=== PATIENT | female | born 1935 | race Caucasian/White ===

== ENCOUNTER 2022-09-13 17:35 | Inpatient (IN) ==
[2022-09-13] MEDS ORDERED: SODIUM CHLORIDE 0.9% 1000ML 1,000 ML IV ONE (18:35)
--- NOTE | 2022-09-13 18:38 | Emergency Department Note ---
Impression & Plan Pneumonia, Non-ST elevation [place] (NSTEMI), Hypokalemia, Leukocytosis ED Provider Note HISTORY OF PRESENT ILLNESS: Patient is an 87-year-old female presenting with shortness of breath and lethargy. Patient is from [facility] where she resides. She was diagnosed with RSV last week and started on 5 L nasal cannula. She reportedly has not been needing the oxygen as frequently over the last week. However, today they found the patient saturating in the upper 80s and started her back on oxygen. She is much more lethargic and sleepy than her normal. She has baseline dementi a. Patient son and MPOA is at bedside. He reports that the patient is comfort measures only, but they would be okay with antibiotics or IV fluids. ROS: Patient currently has altered mental status and is unable to provide accurate information regarding ROS, histories, meds, or allergies. Any information regarding ROS, Past medical or surgical history, social or family history documented below has been obtained from the EMR. Any additional history regarding this cannot be obtained presently due to her medical condition. PHYSICAL EXAM: Constitutional: Patient appears in no acute distress. HENT: Head: Normocephalic and atraumatic. Eyes: EOMI, PERRL Mouth/Throat: Mucous membranes moist. Neck: Trachea midline. Neck supple. Cardiovascular: Tachycardic with regular rhythm. No murmurs, rubs or gallops. Intact distal pulses. Pulmonary/Chest: On non-rebreather. Coarse breath sounds bilaterally. Abdominal: BS +. Abdomen soft, no tenderness, rebound or guarding. Back: No midline spinal tenderness, no paraspinal tenderness, no CVA tenderness. Musculoskeletal: No edema, tenderness or deformity noted. Skin: Warm and dry. Psychiatric: Unable to assess. Neurological: Lethargic. Responds to painful stimuli. Intact gag reflex. MDM: - Vitals signs showed tachycardia. - EKG negative for acute ischemic changes. - Laboratory workup showed leukocytosis (WBC 16.14) with neutrophilic shift; hypernatremia (Na 146); hypokalemia (K 3.2); NSTEMI (trop 24.9 - likely type 2 NSTEMI); - ABG shows alkalosis. - Procal pending - CXR shows cardiomegaly with pulmonary vascular congestion. Also noted to have airspace opacities in the left mid lung and left basilar region. - Blood cultures obtained. - Patient given 1L NS and cefepime in ER. - Hospitalist Dr. Arora consulted for admission. - Patient admitted to [facility] for further evaluation and management. ASSESSMENT AND PLAN: Diagnosis: pneumonia; leukocytosis; hypokalemia; NSTEMI Plan: admit Past Med/Surg History Medical History (Updated 09/13/22 @ 20:45 by Soniya Patel MD) Breast CA treated with lumpectomy and radiation 2010 Dementia GERD (gastroesophageal reflux disease) Hypertension Hypothyroid Right foot injury s/p surgery, now pain Surgical History (Updated 07/11/19 @ 14:43 by Ludy Whyte MD) History of lumpectomy of left breast Social History (Updated 07/11/19 @ 20:17 by Ludy Whyte MD) Smoking Status: Unknown if ever smoked Communication Ability: Impaired Current Living Situation: Family Current Living Situation Comment: lives with son and caregiver current occupational status: 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 other: her family was refugees from [facility] Allergies Allergies Allergy/AdvReac Type Severity Reaction Status Date / Time No Known Allergies Allergy Verified 07/18/19 15:48 Home Meds Home Medications Medication Instructions Recorded Confirmed alprazolam [Xanax] PO 07/11/19 07/18/19 bupropion HCl [Wellbutrin] PO 07/11/19 07/18/19 levothyroxine [Synthroid] PO 07/11/19 07/18/19 losartan PO 07/11/19 07/18/19 omeprazole PO 07/11/19 07/18/19 Results & Data (ED) Vital Signs Vital Signs - 24 hr 09/13/22 17:42 09/13/22 17:42 09/13/22 17:42 Temperature 37.5 C Temperature Source Oral Pulse Rate 101 H Pulse Rate [Apical] Pulse Rhythm Regular Pulse Rhythm [Apical] Pulse Strength Normal Pulse Strength [Apical] Respiratory Rate 20 Respiratory Effort / Characteristics Non-Labored Non-Labored Respiratory Depth Normal Normal Respiratory Pattern Regular Regular Blood Pressure 124/64 Blood Pressure Mean 84 Pulse Oximetry 93 Oxygen Delivery Method Non-rebreather Non-rebreather Non-rebreather Oxygen Flow Rate 15 Sepsis Recent Fever Within 48 Hours Yes Sepsis New/Unexplained Change in Mental Status Yes Sepsis Action Taken by Nursing Physician Notified 09/13/22 17:42 09/13/22 18:44 Temperature Temperature Source Pulse Rate 100 H Pulse Rate [Apical] 102 H Pulse Rhythm Regular Pulse Rhythm [Apical] Regular Pulse Strength Pulse Strength [Apical] Normal Respiratory Rate 20 20 Respiratory Effort / Characteristics Non-Labored Respiratory Depth Normal Respiratory Pattern Regular Blood Pressure Blood Pressure Mean Pulse Oximetry 94 94 Oxygen Delivery Method Non-rebreather Non-rebreather Oxygen Flow Rate 15 Sepsis Recent Fever Within 48 Hours Sepsis New/Unexplained Change in Mental Status Sepsis Action Taken by Nursing Laboratory Data Result diagrams: 09/13/22 18:57 09/13/22 18:57 Lab Results 09/13/22 09/13/22 09/13/22 Range/Units 18:57 18:57 18:58 WBC 16.14 H (4.8-10.8) K/ul RBC 4.40 (3.93-5.22) M/uL Hgb 13.1 (12.0-16.0) g/dl Hct 38.7 (34.1-44.9) % MCV 88.0 (80.0-100.0) fL MCH 29.8 (25.0-34.0) pg MCHC 33.9 (32.0-36.0) g/dL RDW Std Deviation 53.3 H (36.4-46.3) fL RDW Coeff of Tanesha 16.5 H (11.5-14.5) % Plt Count 265 (130-400) K/uL MPV 11.6 (9.4-12.3) fL Immature Gran % (Auto) 8.1 % Neut % (Auto) 81.7 % Lymph % (Auto) 2.9 % Bacon % (Auto) 6.5 % Eos % (Auto) 0.1 % Baso % (Auto) 0.7 % Neut # (Auto) 13.21 H (1.4-6.5) K/uL Lymph # (Auto) 0.46 L (1.2-3.4) K/uL Bacon # (Auto) 1.05 H (0.24-0.82) K/uL Eos # (Auto) 0.01 (0-0.50) K/uL Baso # (Auto) 0.11 (0-0.2) K/uL Immature Gran # (Auto) 1.30 H (0.00-0.02) K/uL Absolute Nucleated RBC 0.03 H (0-0) K/uL Nucleated RBC % (auto) 0.2 % Dohle Bodies 1+ Acanthocytes (Spur) 1+ ABG pH 7.48 H (7.35-7.45) ABG pCO2 32 L (35-46) mmHg ABG pO2 69 L (80-95) mmHg ABG HCO3 24 (19-24) mmol/L ABG O2 Saturation 95.3 H (90-95) % ABG Base Excess 0.9 (-9-1.8) mEq/L Yair Test POS (Pos) Oxygen Given 15 L Sodium 146 H (136-145) mmol/L Potassium 3.2 L (3.5-5.1) mmol/L Chloride 113 H (98-107) mmol/L Carbon Dioxide 24 (21-32) mmol/L Anion Gap 9 (3-11) BUN 37 H (6-23) mg/dl Creatinine 1.00 (0.6-1.2) mg/dl Est Cr Clr Drug Dosing 44.0 ml/min Est GFR ( Amer) 59.1 ml/min Est GFR (Non-Af Amer) 51.0 ml/min BUN/Creatinine Ratio 37.0 H (10-20) Glucose 190 H (70-99(Fasting)) mg/dl Calcium 10.0 (8.5-10.1) mg/dl Total Bilirubin 0.8 (0.2-1.0) mg/dl AST 15 (13-39) U/L ALT 21 (7-52) U/L Alkaline Phosphatase 97 (34-104) U/L Troponin I High Sens 24.9 H (0-14) pg/ml Total Protein 6.6 (6.0-8.3) gm/dl Albumin 3.0 L (3.4-5.0) gm/dl Globulin 3.6 (2.5-4.0) gm/dl Albumin/Globulin Ratio 0.8 L (0.9-2) Administered Medications Discontinued Medications Sodium Chloride (Nss 1000ml) 1,000 mls @ 999 mls/hr IV .Q1H1M ONE Stop: 09/13/22 19:35 Last Infusion: 09/13/22 20:00 Dose: 0 mls/hr Documented By: Admin: 09/13/22 19:03 Dose: 999 mls/hr Documented By: RSL Cefepime HCl (Maxipime) 2,000 mg in 20 mls @ 5 mls/min IV NOW STA; Protocol Stop: 09/13/22 20:06 Last Admin: 09/13/22 20:12 Dose: 5 mls/min Documented By: RSL Imaging Data Radiologist's Impression: Chest X-Ray 09/13/22 18:35 XR chest 1V portable HISTORY: 87 years-old Female Dyspnea acute shortness of breath COMPARISON: None TECHNIQUE: AP view of the chest FINDINGS: Cardiac silhouette is enlarged. Pulmonary vascular congestion. Perihilar, left basilar and left midlung airspace opacities. No pneumothorax identified. Probable small left pleural effusion. Degenerative changes of the shoulders and spine with surgical clips of the left axilla. IMPRESSION: 1. Cardiomegaly with pulmonary vascular congestion. 2. Left midlung and left basilar predominant airspace opacities with small left pleural effusion. Correlate clinically to exclude pneumonia. ACT 112: Negative or not required by law. The above report was generated using voice recognition software. It may contain grammatical, syntax or spelling errors. Electronically signed by: Elton Bishop M.D. 09/13/2022 7:38 PM Discharge Plan Visit Data Chief Complaint: Shortness of Breath/Dyspnea Stated Complaint: SOB ED Provider: Soniya Patel Discharge Problem: Pneumonia, Non-ST elevation [place] (NSTEMI), Hypokalemia, Leukocytosis Forms Stand Alone Forms: My [facility] Prescriptions Prescriptions: No Action omeprazole PO alprazolam PO losartan PO levothyroxine PO bupropion HCl PO Referrals Referrals: Yo Shepard Mason [Primary Care Provider] -
[2022-09-13 19:10] LABS: Base Excess ABG 0.9 mEq/L (-9-1.8); HCO3 ABG 24 mmol/L (19-24); Oxygen Saturation ABG 95.3 % (90-95); PCO2 ABG 32 mmHg (35-46); PO2 ABG 69 mmHg (80-95); pH ABG 7.48 (7.35-7.45)
[2022-09-13 19:11] LABS: Hematocrit (blood only) 38.7 % (34.1-44.9); Hemoglobin 13.1 g/dl (12.0-16.0); Mean Corpuscular Hemoglobin 29.8 pg (25.0-34.0); Mean Corpuscular Hgb Conc 33.9 g/dL (32.0-36.0); Mean Platelet Volume 11.6 fL (9.4-12.3); Nucleated RBC # (auto) 0.03 K/uL (0-0); Nucleated RBC % (auto) 0.2 %; Platelet Count 265 K/uL (130-400); RDW Coefficient of Variation 16.5 % (11.5-14.5); RDW Standard Deviation 53.3 fL (36.4-46.3); White Blood Count 16.14 K/ul (4.8-10.8)
[2022-09-13 19:20] LABS: Allen Test POS (Pos)
[2022-09-13 19:34] LABS: Acanthocytes 1+; Basophils # (auto) 0.11 K/uL (0-0.2); Basophils % (auto) 0.7 %; Dohle Bodies 1+; Eosinophils # (auto) 0.01 K/uL (0-0.50); Eosinophils % (auto) 0.1 %; Immature Granulocytes % (auto) 8.1 %; Lymphocytes # (auto) 0.46 K/uL (1.2-3.4); Lymphocytes % (auto) 2.9 %; Monocytes # (auto) 1.05 K/uL (0.24-0.82); Monocytes % (auto) 6.5 %; Neutrophils # (auto) 13.21 K/uL (1.4-6.5); Neutrophils % (auto) 81.7 %
[2022-09-13 19:37] LABS: Troponin I High Sensitivity 24.9 pg/ml (0-14)
--- NOTE | 2022-09-13 19:39 | XRay Report ---
XR chest 1V portable HISTORY: 87 years-old Female Dyspnea acute shortness of breath COMPARISON: None TECHNIQUE: AP view of the chest FINDINGS: Cardiac silhouette is enlarged. Pulmonary vascular congestion. Perihilar, left basilar and left midlu ng airspace opacities. No pneumothorax identified. Probable small left pleural effusion. Degenerative changes of the shoulders and spine with surgical clips of the left axilla. IMPRESSION: 1. Cardiomegaly with pulmonary vascular congestion. 2. Left midlung and left basilar predominant airspace opacities with small left pleural effusion. Cor relate clinically to exclude pneumonia. ACT 112: Negative or not required by law. The above report was generated using voice recognition software. It may contain grammatical, syntax o r spelling errors. Electronically signed by: Elton Bishop M.D. 09/13/2022 7:38 PM
[2022-09-13 19:44] LABS: Albumin Globulin Ratio 0.8 (0.9-2); Bilirubin,Total 0.8 mg/dl (0.2-1.0); Est GFR (African American) 59.1 ml/min; Globulin 3.6 gm/dl (2.5-4.0); Potassium 3.2 mmol/L (3.5-5.1); Total Protein 6.6 gm/dl (6.0-8.3)
[2022-09-13] MEDS ORDERED: CEFEPIME 2,000 MG/20 ML VIAL IV STA (20:03)
[2022-09-13 22:07] LABS: Appearance Urine Cloudy (Clear); Bacteria Urine Automated Negative (Negative); Bilirubin Urine Negative (Negative); Blood Urine Negative (Negative); Color Urine Dark Yellow; Epithelial Cell Urine Auto 20-30 /lpf (0-5); Glucose Urine UA Negative (Negative); Ketones Urine Trace (Negative); Leukocyte Esterase Urine Trace (Negative); Nitrite Urine Negative (Negative); Protein Urine 2+ (Negative); Specific Gravity Urine 1.027 (1.000-1.030); Urobilinogen Urine Negative (Negative); pH Urine 5.5 (4.5-7.5)
[2022-09-13 22:34] LABS: RBC Urine Automated 0-4 /hpf (0-4)
[2022-09-13 23:25] LABS: Influenza A virus by PCR Negative (Neg); Influenza B virus by PCR Negative (Neg); RSV by PCR Negative (Neg); SARS CoV2 RNA(COVID-19) Ceph NEGATIVE (Negative)
[2022-09-14] MEDS ORDERED: ACETAMINOPHEN 325 MG TAB PO PRN (00:59)
[2022-09-14] MEDS ORDERED: NITROGLYCERIN SL 0.4 MG/TAB TAB SL PRN (00:59)
[2022-09-14] MEDS ORDERED: ALBUTEROL 0.083% NEBU SOLN 3 ML VIAL NEB PRN (00:59)
[2022-09-14] MEDS ORDERED: ONDANSETRON INJ 2 MG/ML 2 ML VIAL IV PRN (00:59)
[2022-09-14] MEDS ORDERED: DOXYCYCLINE HYCLATE 100 MG in DEXTROSE 5% 100 ML IV STA (01:31)
[2022-09-14] MEDS: D5W AND 1/2NSS 1,000 ML IV SCH ×3 (02:16→22:48)
[2022-09-14] MEDS: POTASSIUM CHLORIDE / WTR 10 MEQ/100 ML PLCT IV SCH ×4 (02:16→05:20)
[2022-09-14] MEDS ORDERED: Nursing to Pharmacy Communication SCH (03:15)
[2022-09-14] MEDS: PIPERACILLIN/TAZOBACTAM 3.375 GM in DEXTROSE 5% 100 ML IV SCH ×3 (04:22→19:27)
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
[2022-09-14 05:13] LABS: Hematocrit (blood only) 36.4 % (34.1-44.9); Hemoglobin 12.3 g/dl (12.0-16.0); Mean Corpuscular Hemoglobin 29.9 pg (25.0-34.0); Mean Corpuscular Hgb Conc 33.8 g/dL (32.0-36.0); Mean Corpuscular Volume 88.6 fL (80.0-100.0); Mean Platelet Volume 11.7 fL (9.4-12.3); Platelet Count 228 K/uL (130-400); RDW Coefficient of Variation 16.5 % (11.5-14.5); RDW Standard Deviation 53.6 fL (36.4-46.3); Red Blood Count 4.11 M/uL (3.93-5.22); White Blood Count 14.02 K/ul (4.8-10.8)
[2022-09-14 05:40] LABS: Echinocytes 1+
[2022-09-14] MEDS: HEPARIN SOD 5,000 UNIT/0.5 ML VIAL SQ SCH ×3 (05:56→20:41)
[2022-09-14 06:00] LABS: BUN Creatinine Ratio 35.3 (10-20); Calcium 9.4 mg/dl (8.5-10.1); Creatinine Clr Calc Pharmacy 51.8 ml/min; Est GFR (African American) 71.9 ml/min; Magnesium 1.7 mg/dl (1.7-2.4); Phosphorus 2.1 mg/dl (2.5-4.9); Troponin I High Sensitivity 19.1 pg/ml (0-14)
[2022-09-14 06:05] LABS: Lymphocytes % (manual) 10 %; Monocytes # (manual) 0.84 K/uL (0.24-0.82); Monocytes % (manual) 6 %; Neutrophils # (manual) 11.78 K/uL (1.4-6.5); Neutrophils % (manual) 84 %
[2022-09-14] MEDS: LEVOTHYROXINE SODIUM 100 MCG TABLET PO SCH (06:49)
[2022-09-14] MEDS ORDERED: OPTIRAY 320 500ml IV ONE (08:00)
[2022-09-14] MEDS: OLANZAPINE 2.5 MG TAB PO SCH ×2 (09:14→20:40)
[2022-09-14] MEDS: FERROUS SULFATE 325 MG TAB PO SCH (09:14)
[2022-09-14] MEDS: PANTOprazole 40 MG TAB PO SCH (09:14)
[2022-09-14] MEDS: LOSARTAN POTASSIUM 50 MG TAB PO SCH (09:14)
[2022-09-14] MEDS: DULoxetine HCL 60 MG CAP PO SCH (09:14)
--- NOTE | 2022-09-14 10:02 | CT Scan Report ---
CT ANGIOGRAM OF THE CHEST CLINICAL HISTORY: Cough and dyspnea. COMPARISON STUDY: Chest x-ray dated 09/13/2020 2P TECHNIQUE: Following the IV administration of 120 cc of Optiray 320, CT angiogram of the chest was pe rformed from the upper abdomen to the thoracic inlet utilizing the pulmonary embolus protocol. Images are reviewed in the axial, sagittal, and coronal planes. 3-D MIPS images are created and assessed. I V contrast was administered without complication. A dose lowering technique was utilized adhering to the principles of ALARA. The examination is significantly degraded by motion artifact, as well as by streak artifact from the arms which could not be elevated above the chest. CT DOSE: 484.84 mGy.cm FINDINGS: Thyroid: Mildly enlarged and heterogeneous. Thoracic aorta: There is atherosclerotic calcification of the thoracic aorta, which is normal in evan jordan and demonstrates standard 3-vessel arch anatomy. No dissection is seen. Pulmonary vasculature: The pulmonary trunk is normal in caliber. There are no filling defects identif ied in main, lobar, or proximal segmental pulmonary branches to suggest pulmonary embolus. Evaluation of the segmental and subsegmental branches is degraded by motion artifact. Heart: The heart is enlarged and without pericardial effusion. The coronary arteries are densely calc ified. Lungs and pleural spaces: There is dense dependent airspace consolidation seen throughout both lungs, left greater than right. Moderate patchy consolidation is seen in the upper lobes. There are trace p leural effusions. The trachea and central airways are patent. Mediastinum: There is no mediastinal lymphadenopathy. Lucia: The lucia are obscured by adjacent consolidation. Axillae: Surgical clips are noted in the left axilla. There is no axillary lymphadenopathy. Upper abdomen: There is a moderate to large hiatal hernia. Partially visualized upper abdominal visce ra is otherwise grossly unremarkable. Skeletal structures: The skeletal structures are osteopenic. Advanced degenerative change and hyperky phosis is noted throughout the thoracic spine. Advanced arthritic change is seen in the shoulders. No lytic or blastic bony lesions are seen. Soft tissues: Postsurgical change is noted in the left breast. IMPRESSION: 1. Streak and motion compromised examination. 2. There is no evidence of central pulmonary embolus in the main, lobar, or proximal segmental pulmon gurwinder arteries. Evaluation of the segmental and subsegmental branches is compromised by motion artifact . 3. Extensive bilateral airspace consolidation is typical for pneumonia/aspiration pneumonitis. Clinic al correlation will be required and radiographic follow-up to resolution is recommended. 4. Trace pleural effusions. 5. Cardiomegaly. 6. Moderate to large hiatal hernia. 7. Additional findings as above. ACT 112: Negative or not required by law. Electronically signed by: Issac Shipman M.D. 09/14/2022 10:01 AM
[2022-09-14 10:07] LABS: A calco-baum cmplx NotReported Not Detected (NotDetected); Bact fragilis Not Reported Not Detected (NotDetected); C auris Not Reported Not Detected (NotDetected); Calbicans Not Reported Not Detected (NotDetected); Candida glabrata Not Reported Not Detected (NotDetected); Candida krusei Not Reported Not Detected (NotDetected); Cneoformans/gatti Not Reported Not Detected (NotDetected); Cparapsilosis Not Reported Not Detected (NotDetected); Ctropicalis Not Reported Not Detected (NotDetected); E cloacae compx Not Reported Not Detected (NotDetected); Efaecalis Not Reported Not Detected (NotDetected); Efaecium Not Reported Not Detected (NotDetected); Enterobacterales Not Reported Not Detected (NotDetected); Escherichia coli Not Reported Not Detected (NotDetected); H influenzae Not Reported Not Detected (NotDetected); K aerogenes Not Reported Not Detected (NotDetected); Koxytoca Not Reported Not Detected (NotDetected); Kpneumoniae grp Not Reported Not Detected (NotDetected); Lmonocyt Not Reported Not Detected (NotDetected); N meningitidis Not Reported Not Detected (NotDetected); P aeruginosa Not Reported Not Detected (NotDetected); Proteus spp Not Reported Not Detected (NotDetected); Salmonella spp Not Reported Not Detected (NotDetected); Smarcescens Not Reported Not Detected (NotDetected); Staph lugdunensis Not Reported Not Detected (NotDetected); Staph spp. Not Reported Not Detected (NotDetected); Staphaureus Not Reported Not Detected (NotDetected); Staphepi Not Reported Not Detected (NotDetected); Stenmaltophilia Not Reported Not Detected (NotDetected); Strep agal(GrpB) Not Reported Not Detected (NotDetected); Strep pneum Not Reported DETECTED (NotDetected); Strep pyog (GrpA) Not Reported Not Detected (NotDetected); Strep spp Not Reported DETECTED (NotDetected); Streptococcus spp DETECTED (NotDetected)
[2022-09-14 10:27] LABS: Streptococcus pneumoniae DETECTED (NotDetected)
[2022-09-14] MEDS ORDERED: VANCOMYCIN CONSULT ACTIVE PRN (10:34)
--- NOTE | 2022-09-14 10:45 | Electrocardiogram Report ---
Test Reason : Blood Pressure : / mmHG Vent. Rate : 101 BPM Atrial Rate : 101 BPM P-R Int : 142 ms QRS Dur : 096 ms QT Int : 310 ms P-R-T Axes : 021 -28 -01 degrees QTc Int : 401 ms Sinus tachycardia Voltage criteria for left ventricular hypertrophy Poor R wave progression, consider anterior IL vs. lead placement vs. LVH Abnormal ECG No previous ECGs available Confirmed by Satinder Bledsoe ([id number]) on 09/14/2022 10:44:37 AM Referred By: REFERRED SELF Confirmed By:Yoseph Bledsoe
[2022-09-14] MEDS: VANCOMYCIN HCL 1,750 MG in SODIUM CHLORIDE 0.9% 500 ML IV STA ×2 (12:07→12:18)
[2022-09-14] MEDS: ALBUT/IPRATROP 3MG/0.5MG NEB 3 ML VIAL NEB SCH ×2 (12:10→17:46)
[2022-09-14] MEDS: DOXYCYCLINE HYCLATE 100 MG in DEXTROSE 5% 100 ML IV SCH ×2 (12:48→22:48)
--- NOTE | 2022-09-14 16:30 | Hospitalist Progress Note ---
Date of Service September 14, 2022 Assessment & Plan (1) Sepsis: (2) Streptococcal bacteremia: (3) Pneumonia: Plan: Recent history of respiratory syncytial virus infection in SNF Comes in with respiratory distress Chest x-ray shows bilateral pneumonia; left greater than right. Blood culture positive for Streptococcus pneumonia MRSA nares negative Plan; Continue on Zosyn for streptococcal pneumoniae bacteremia and pneumonia. Continue respiratory support with high flow nasal cannula; wean as tolerated. Repeat blood culture tomorrow a.m. Continue airway clearance with duo nebs, hypertonic saline. N.p.o. for now; speech eval after mentation improves. (4) Hypernatremia: Plan: Sodium 146; down trended with D5 half NS Plan to continue D5 1/2 NS at 75 cc/h Plan Chronic conditions: History of breast cancer and endometrial cancer, status post surgery. History of hypertension. Losartan with holding parameters. Depression on duloxetine, when able to take po History of hypothyroidism, on Synthroid. History of dementia, Alzheimer's dementia, severe, not able to recognize family members, oriented to name only. Continue to monitor for delirium. Continue Zyprexa home medications. Ambulatory dysfunction. The patient remained only wheelchair bound and needs assistance to get into the wheelchair. Deep venous thrombosis prophylaxis: Placed on heparin subcutaneous. Discussed with her son Moustapha Taylor about patient's current condition. They acknowledge patient's critical condition. They want to continue medical intervention with antibiotic and supportive care for now. If she does not respond well; they want her to be as comfortable as possible. Patient is DNR/DNI. Admission and Anticipated Discharge Date Admission Date: September 13, 2022 Subjective Patient seen and examined at bedside. She is lying on the bed; opens her eyes to voice. Does not follow any commands. She appears lethargic. Review of Systems Review of Systems: All systems reviewed & are unremarkable except as noted in Subjective Physical Exam Physical Exam: Constitutional: Lethargic, awakens to verbal stimuli, in respiratory distress. Respiratory: Bilateral coarse crackle heard; more on left side. Cardiovascular: RRR, no murmur, no edema Vessels: no JVD or carotid bruit Chest: normal inspection of chest Abdomen: normal bowel sounds, soft, nontender, no hepatosplenomegaly Musculoskeletal: no cyanosis or clubbing, extremities motor strength 5/5 Skin: no rashes, warm and dry normal turgor Neurologic: Lethargic; awakens to verbal stimuli. Results & Data Results & Data ([facility]) Vital Signs (Past 12 Hours) Vital Signs Temp Pulse Pulse Resp BP BP Pulse Ox 09/14/22 16:13 88 09/14/22 15:51 36.7 C 72 24 139/68 92 09/14/22 15:51 09/14/22 15:44 84 22 92 09/14/22 15:00 81 24 131/78 94 09/14/22 12:02 09/14/22 13:56 89 24 142/74 H 95 09/14/22 13:00 94 H 18 93 09/14/22 12:50 94 H 24 131/79 93 09/14/22 12:10 90 20 90 09/14/22 12:02 99 H 32 H 140/72 90 09/14/22 08:05 94 H 29 H 121/79 92 09/14/22 07:30 78 24 137/70 93 09/14/22 07:45 92 09/14/22 07:00 93 H 27 H 141/70 H 93 09/14/22 07:14 09/14/22 06:00 87 24 130/74 91 09/14/22 05:30 100 H 25 H 156/90 H 93 09/14/22 05:00 155/93 H 09/14/22 04:50 98 H 31 H 93 09/14/22 04:30 108 H 32 H 154/82 H 91 Pulse Ox O2 Del Method O2 Del Method O2 Flow Rate O2 Flow Rate FiO2 09/14/22 16:13 09/14/22 15:51 High Flow Nasal Cannula 09/14/22 15:51 High Flow Nasal Cannula 30 90 09/14/22 15:44 High Flow Nasal Cannula 30 90 09/14/22 15:00 High Flow Nasal Cannula 30 09/14/22 12:02 Oxymask 8 09/14/22 13:56 High Flow Nasal Cannula 30 09/14/22 13:00 High Flow Nasal Cannula 30 90 09/14/22 12:50 High Flow Nasal Cannula 30 09/14/22 12:10 Oxymask 8 09/14/22 12:02 Oxymask 8 09/14/22 08:05 Oxymask 8 09/14/22 07:30 Oxymask 8 09/14/22 07:45 Oxymask 11/28/22 07:00 Non-rebreather 15 09/14/22 07:14 93 Non-rebreather 15 09/14/22 06:00 09/14/22 05:30 09/14/22 05:00 09/14/22 04:50 09/14/22 04:30 Laboratory Results Laboratory Results WBC 14.02 K/ul (4.8-10.8) H 09/14/22 05:00 RBC 4.11 M/uL (3.93-5.22) 09/14/22 05:00 Hgb 12.3 g/dl (12.0-16.0) 09/14/22 05:00 Hct 36.4 % (34.1-44.9) 09/14/22 05:00 MCV 88.6 fL (80.0-100.0) 09/14/22 05:00 MCH 29.9 pg (25.0-34.0) 09/14/22 05:00 MCHC 33.8 g/dL (32.0-36.0) 09/14/22 05:00 RDW Std Deviation 53.6 fL (36.4-46.3) H 09/14/22 05:00 RDW Coeff of Tanesha 16.5 % (11.5-14.5) H 09/14/22 05:00 Plt Count 228 K/uL (130-400) 09/14/22 05:00 MPV 11.7 fL (9.4-12.3) 09/14/22 05:00 Immature Gran % (Auto) 8.1 % 09/13/22 18:57 Neut % (Auto) 81.7 % 09/13/22 18:57 Lymph % (Auto) 2.9 % 09/13/22 18:57 Sibley % (Auto) 6.5 % 09/13/22 18:57 Eos % (Auto) 0.1 % 09/13/22 18:57 Baso % (Auto) 0.7 % 09/13/22 18:57 Neut # (Auto) 13.21 K/uL (1.4-6.5) H 09/13/22 18:57 Lymph # (Auto) 0.46 K/uL (1.2-3.4) L 09/13/22 18:57 Sibley # (Auto) 1.05 K/uL (0.24-0.82) H 09/13/22 18:57 Eos # (Auto) 0.01 K/uL (0-0.50) 09/13/22 18:57 Baso # (Auto) 0.11 K/uL (0-0.2) 09/13/22 18:57 Immature Gran # (Auto) 1.30 K/uL (0.00-0.02) H 09/13/22 18:57 Absolute Nucleated RBC 0.03 K/uL (0-0) H 09/13/22 18:57 Nucleated RBC % (auto) 0.2 % 09/13/22 18:57 Neutrophils % (Manual) 84 % 09/14/22 05:00 Lymphocytes % (Manual) 10 % 09/14/22 05:00 Monocytes % (Manual) 6 % 09/14/22 05:00 Neutrophils # (Manual) 11.78 K/uL (1.4-6.5) H 09/14/22 05:00 Lymphocytes # (Manual) 1.40 K/uL (1.2-3.4) 09/14/22 05:00 Monocytes # (Manual) 0.84 K/uL (0.24-0.82) H 09/14/22 05:00 Dohle Bodies 1+ 09/13/22 18:57 Echinocytes 1+ 09/14/22 05:00 Acanthocytes (Spur) 1+ 09/13/22 18:57 ABG pH 7.48 (7.35-7.45) H 09/13/22 18:58 ABG pCO2 32 mmHg (35-46) L 09/13/22 18:58 ABG pO2 69 mmHg (80-95) L 09/13/22 18:58 ABG HCO3 24 mmol/L (19-24) 09/13/22 18:58 ABG O2 Saturation 95.3 % (90-95) H 09/13/22 18:58 ABG Base Excess 0.9 mEq/L (-9-1.8) 09/13/22 18:58 Yair Test POS (Pos) 09/13/22 18:58 Oxygen Given 15 L 09/13/22 18:58 Sodium 145 mmol/L (136-145) 09/14/22 05:00 Potassium 4.0 mmol/L (3.5-5.1) D 09/14/22 05:00 Chloride 116 mmol/L (98-107) H 09/14/22 05:00 Carbon Dioxide 22 mmol/L (21-32) 09/14/22 05:00 Anion Gap 7 (3-11) 09/14/22 05:00 BUN 30 mg/dl (6-23) H 09/14/22 05:00 Creatinine 0.85 mg/dl (0.6-1.2) 09/14/22 05:00 Est Cr Clr Drug Dosing 51.8 ml/min 09/14/22 05:00 Est GFR ( Amer) 71.9 ml/min 09/14/22 05:00 Est GFR (Non-Af Amer) 62.0 ml/min 09/14/22 05:00 BUN/Creatinine Ratio 35.3 (10-20) H 09/14/22 05:00 Glucose 203 mg/dl (70-99(Fasting)) H 09/14/22 05:00 Calcium 9.4 mg/dl (8.5-10.1) 09/14/22 05:00 Phosphorus 2.1 mg/dl (2.5-4.9) L 09/14/22 05:00 Magnesium 1.7 mg/dl (1.7-2.4) 09/14/22 05:00 Total Bilirubin 0.8 mg/dl (0.2-1.0) 09/13/22 18:57 AST 15 U/L (13-39) 09/13/22 18:57 ALT 21 U/L (7-52) 09/13/22 18:57 Alkaline Phosphatase 97 U/L (34-104) 09/13/22 18:57 Troponin I High Sens 21.2 pg/ml (0-14) H 09/14/22 11:25 Total Protein 6.6 gm/dl (6.0-8.3) 09/13/22 18:57 Albumin 3.0 gm/dl (3.4-5.0) L 09/13/22 18:57 Globulin 3.6 gm/dl (2.5-4.0) 09/13/22 18:57 Albumin/Globulin Ratio 0.8 (0.9-2) L 09/13/22 18:57 Procalcitonin 5.24 ng/ml (0-0.5) H 09/13/22 18:57 Urine Color Dark Yellow 09/13/22 21:31 Urine Appearance Cloudy (Clear) A 09/13/22 21:31 Urine pH 5.5 (4.5-7.5) 09/13/22 21:31 Ur Specific [place] 1.027 (1.000-1.030) 09/13/22 21:31 Urine Protein 2+ (Negative) H 09/13/22 21:31 Urine Glucose (UA) Negative (Negative) 09/13/22 21:31 Urine Ketones Trace (Negative) H 09/13/22 21:31 Urine Blood Negative (Negative) 09/13/22 21: Urine Nitrite Negative (Negative) 09/13/22 21: Urine Bilirubin Negative (Negative) 09/13/22 21:31 Urine Urobilinogen Negative (Negative) 09/13/22 21:31 Ur Leukocyte Esterase Trace (Negative) H 09/13/22 21:31 Urine WBC (Auto) 1-5 /hpf (0-5) 09/13/22 21:31 Urine RBC (Auto) 0-4 /hpf (0-4) 09/13/22 21:31 U Hyaline Cast (Auto) 5-10 /lpf (0-5) H 09/13/22 21:31 U Epithel Cells (Auto) 20-30 /lpf (0-5) H 09/13/22 21:31 Urine Bacteria (Auto) Negative (Negative) 09/13/22 21:31 Urine Yeast Not Reportable 09/13/22 21:31 Nasal Screen MRSA (PCR) Negative (Negative) 09/14/22 11:30 SARS-CoV-2 (PCR) NEGATIVE (Negative) 09/13/22 22:36 Influenza Type A (PCR) Negative (Neg) 09/13/22 22:36 Influenza Type B (PCR) Negative (Neg) 09/13/22 22:36 RSV (RT-PCR) Negative (Neg) 09/13/22 22:36 SARS-CoV-2, RNA, NAAT NEGATIVE (NEGATIVE) 09/13/22 22:26 Streptococcus sp PCR DETECTED (NotDetected) A 09/13/22 18:57 Strep pneumoniae (PCR) DETECTED (NotDetected) A 09/13/22 18:57 Bld Cult ID Panel PCR See PCR Comment (NotDetected) 09/13/22 18:57 Impressions Chest X-Ray 09/13/22 18:35 XR chest 1V portable HISTORY: 87 years-old Female Dyspnea acute shortness of breath COMPARISON: None TECHNIQUE: AP view of the chest FINDINGS: Cardiac silhouette is enlarged. Pulmonary vascular congestion. Perihilar, left basilar and left midlung airspace opacities. No pneumothorax identified. Probable small left pleural effusion. Degenerative changes of the shoulders and spine with surgical clips of the left axilla. IMPRESSION: 1. Cardiomegaly with pulmonary vascular congestion. 2. Left midlung and left basilar predominant airspace opacities with small left pleural effusion. Correlate clinically to exclude pneumonia. ACT 112: Negative or not required by law. The above report was generated using voice recognition software. It may contain grammatical, syntax or spelling errors. Electronically signed by: Elton Bishop M.D. 09/13/2022 7:38 PM Chest CTA 09/14/22 07:27 CT ANGIOGRAM OF THE CHEST CLINICAL HISTORY: Cough and dyspnea. COMPARISON STUDY: Chest x-ray dated 09/13/2020 2P TECHNIQUE: Following the IV administration of 120 cc of Optiray 320, CT angiogram of the chest was performed from the upper abdomen to the thoracic inlet utilizing the pulmonary embolus protocol. Images are reviewed in the axial, sagittal, and coronal planes. 3-D MIPS images are created and assessed. IV contrast was administered without complication. A dose lowering technique was utilized adhering to the principles of ALARA. The examination is significantly degraded by motion artifact, as well as by streak artifact from the arms which could not be elevated above the chest. CT DOSE: 484.84 mGy.cm FINDINGS: Thyroid: Mildly enlarged and heterogeneous. Thoracic aorta: There is atherosclerotic calcification of the thoracic aorta, which is normal in caliber and demonstrates standard 3-vessel arch anatomy. No dissection is seen. Pulmonary vasculature: The pulmonary trunk is normal in caliber. There are no filling defects identified in main, lobar, or proximal segmental pulmonary branc hes to suggest pulmonary embolus. Evaluation of the segmental and subsegmental branches is degraded by motion artifact. Heart: The heart is enlarged and without pericardial effusion. The coronary ar teries are densely calcified. Lungs and pleural spaces: There is dense dependent airspace consolidation seen throughout both lungs, left greater than right. Moderate patchy consolidation is seen in the upper lobes. There are trace pleural effusions. The trachea and central airways are patent. Mediastinum: There is no mediastinal lymphadenopathy. Lucia: The lucia are obscured by adjacent consolidation. Axillae: Surgical clips are noted in the left axilla. There is no axillary lymphadenopathy. Upper abdomen: There is a moderate to large hiatal hernia. Partially visualized upper abdominal viscera is otherwise grossly unremarkable. Skeletal structures: The skeletal structures are osteopenic. Advanced degenerative change and hyperkyphosis is noted throughout the thoracic spine. Advanced arthritic change is seen in the shoulders. No lytic or blastic bony lesions are seen. Soft tissues: Postsurgical change is noted in the left breast. IMPRESSION: 1. Streak and motion compromised examination. 2. There is no evidence of central pulmonary embolus in the main, lobar, or proximal segmental pulmonary arteries. Evaluation of the segmental and subsegmental branches is compromised by motion artifact. 3. Extensive bilateral airspace consolidation is typical for pneumonia/aspiration pneumonitis. Clinical correlation will be required and radiographic follow-up to resolution is recommended. 4. Trace pleural effusions. 5. Cardiomegaly. 6. Moderate to large hiatal hernia. 7. Additional findings as above. ACT 112: Negative or not required by law. Electronically signed by: Issac Shipman M.D. 09/14/2022 10:01 AM
[2022-09-14] MEDS: SODIUM CHLOR 7% 4 ML NEB NEB SCH (17:40)
[2022-09-14] MEDS: MELATONIN 3 MG TAB PO SCH (20:40)
[2022-09-14] MEDS: traZODone HCL 50 MG TAB PO SCH (20:40)
[2022-09-15] MEDS: ALBUT/IPRATROP 3MG/0.5MG NEB 3 ML VIAL NEB SCH ×4 (00:14→18:05)
[2022-09-15] MEDS: PIPERACILLIN/TAZOBACTAM 3.375 GM in DEXTROSE 5% 100 ML IV SCH ×2 (03:29→12:42)
[2022-09-15] MEDS: HEPARIN SOD 5,000 UNIT/0.5 ML VIAL SQ SCH ×3 (05:12→20:10)
[2022-09-15] MEDS: LEVOTHYROXINE SODIUM 100 MCG TABLET PO SCH (05:12)
[2022-09-15] MEDS: SODIUM CHLOR 7% 4 ML NEB NEB SCH ×2 (05:20→18:05)
[2022-09-15 08:14] LABS: Hematocrit (blood only) 35.2 % (34.1-44.9); Hemoglobin 11.4 g/dl (12.0-16.0); Mean Corpuscular Hemoglobin 29.5 pg (25.0-34.0); Mean Corpuscular Hgb Conc 32.4 g/dL (32.0-36.0); Mean Corpuscular Volume 91.2 fL (80.0-100.0); Mean Platelet Volume 11.4 fL (9.4-12.3); Platelet Count 242 K/uL (130-400); RDW Coefficient of Variation 17.1 % (11.5-14.5); RDW Standard Deviation 57.4 fL (36.4-46.3); Red Blood Count 3.86 M/uL (3.93-5.22); White Blood Count 11.46 K/ul (4.8-10.8)
[2022-09-15] MEDS: DULoxetine HCL 60 MG CAP PO SCH (08:33)
[2022-09-15] MEDS: FERROUS SULFATE 325 MG TAB PO SCH (08:33)
[2022-09-15] MEDS: PANTOprazole 40 MG TAB PO SCH (08:33)
[2022-09-15] MEDS: OLANZAPINE 2.5 MG TAB PO SCH ×2 (08:33→19:19)
[2022-09-15] MEDS: LOSARTAN POTASSIUM 50 MG TAB PO SCH (08:33)
[2022-09-15] MEDS: D5W AND 1/2NSS 1,000 ML IV SCH (08:34)
[2022-09-15 08:45] LABS: BUN Creatinine Ratio 24.7 (10-20); Calcium 9.4 mg/dl (8.5-10.1); Creatinine Clr Calc Pharmacy 52.9 ml/min; Est GFR (African American) 71.9 ml/min; Potassium 3.2 mmol/L (3.5-5.1)
[2022-09-15 08:48] LABS: Basophils # (auto) 0.06 K/uL (0-0.2); Basophils % (auto) 0.5 %; Echinocytes 1+; Eosinophils # (auto) 0.12 K/uL (0-0.50); Immature Granulocytes # (auto) 0.48 K/uL (0.00-0.02); Immature Granulocytes % (auto) 4.2 %; Lymphocytes # (auto) 0.96 K/uL (1.2-3.4); Lymphocytes % (auto) 8.4 %; Monocytes # (auto) 0.53 K/uL (0.24-0.82); Monocytes % (auto) 4.6 %; Neutrophils # (auto) 9.31 K/uL (1.4-6.5); Neutrophils % (auto) 81.3 %; Polychromasia 1+; Target Cells 1+; Toxic Granulation 1+; Toxic Vacuolation 1+
[2022-09-15] MEDS: POTASSIUM CHLORIDE / WTR 10 MEQ/100 ML PLCT IV SCH ×3 (10:13→12:11)
[2022-09-15] MEDS: DOXYCYCLINE HYCLATE 100 MG in DEXTROSE 5% 100 ML IV SCH ×2 (11:02→23:59)
[2022-09-15] MEDS: cefTRIAXone SODIUM 2,000 MG in DEXTROSE 5% 50 ML IV SCH (19:18)
[2022-09-15] MEDS: MELATONIN 3 MG TAB PO SCH (19:18)
[2022-09-15] MEDS: traZODone HCL 50 MG TAB PO SCH (19:19)
[2022-09-15] MEDS ORDERED: ACETAMINOPHEN 1,000 MG/100 ML VIAL IV PRN (19:42)
--- NOTE | 2022-09-15 21:14 | Hospitalist Progress Note ---
Date of Service September 15, 2022 Assessment & Plan (1) Sepsis: (2) Pneumonia: Plan: Present on admission with SOB with hypoxia and confusion Recent history of respiratory syncytial virus infection in SNF Met sepsis criteria with leukocytosis, febrile, tachycradia with positive blood pressure CTA chest showed extensive bilateral airspace consolidation is typical for pneumonia/aspiration pneumonitis CXR showed cardiomegaly with pulmonary vascular congestion. Left midlung and left basilar predominant airspace opacities with small left pleural effusion. Blood culture positive for Streptococcus pneumonia MRSA nares negative Currently on IV zosyn and doxycycline Continue respiratory support with high flow nasal cannula; wean as tolerated. Continue airway clearance with duo nebs, hypertonic saline. Currently N.p.o. due to drowsiness Consider speech eval when mental status improves (3) Streptococcal bacteremia: Plan: Blood cx grew strep pneumonia currently on IV Zosyn and IV doxycycline Will follow blood cx sensitivity Repeat blood cx today Will deescalate antibiotic to Ceftriaxone (4) Hypernatremia: Plan: Sodium 143 today Continue D5 1/2 NS at 50 cc/h Monitor BMP (5) Hypokalemia: Plan: K 3.2 today K replaced Continue monitor BMP Plan Chronic conditions: History of breast cancer and endometrial cancer, status post surgery. History of hypertension. Losartan with holding parameters. Depression on duloxetine, when able to take po History of hypothyroidism, on Synthroid. History of dementia, Alzheimer's dementia, severe, not able to recognize family members, oriented to name only. Continue to monitor for delirium. Continue Zyprexa home medications. Ambulatory dysfunction. The patient remained only wheelchair bound and needs assistance to get into the wheelchair. Deep venous thrombosis prophylaxis: on heparin subcutaneous. Updated son about patient's current condition. Son acknowledge patient's critical condition. Continue medical intervention with antibiotic and supportive care for now. If she does not respond well; family wants her to be as comfortable as possible. Patient is DNR/DNI. Admission and Anticipated Discharge Date Admission Date: September 13, 2022 Subjective Patient seen and examined at bedside for follow Lying in bed with eyes closed, but opened her eyes to voice. Does not follow any commands. She is drowsy Son at bedside and provide with details and answered all his questions Review of Systems Review of Systems: All systems reviewed & are unremarkable except as noted in Subjective Physical Exam Physical Exam: Constitutional: Lethargic, awakens to verbal stimuli, in respiratory distress. Respiratory: coarse BS Cardiovascular: RRR, no murmur, no edema Vessels: no JVD or carotid bruit Chest: normal inspection of chest Abdomen: normal bowel sounds, soft, nontender, no hepatosplenomegaly Musculoskeletal: no cyanosis or clubbing, extremities motor strength 5/5 Skin: no rashes, warm and dry normal turgor Neurologic: Lethargic; awakens to verbal stimuli. Results & Data Results & Data ([facility]) Vital Signs (Past 12 Hours) Vital Signs Temp Pulse Pulse Resp BP Pulse Ox O2 Del Method 09/15/22 19:51 38.1 C H 81 20 139/58 L 93 High Flow Nasal Cannula 09/15/22 18:06 74 18 94 High Flow Nasal Cannula 09/15/22 15:54 37.6 C H 77 20 132/75 93 High Flow Nasal Cannula 09/15/22 15:10 68 09/15/22 14:33 73 18 95 High Flow Nasal Cannula 09/15/22 12:21 71 18 94 High Flow Nasal Cannula 09/15/22 12:00 36.8 C 66 20 115/74 99 High Flow Nasal Cannula 09/15/22 11:09 63 18 91 High Flow Nasal Cannula O2 Flow Rate FiO2 09/15/22 19:51 25 40 09/15/22 18:06 25 40 09/15/22 15:54 40 25 09/15/22 15:10 09/15/22 14:33 25 40 09/15/22 12:21 30 50 09/15/22 12:00 09/15/22 11:09 30 50
[2022-09-16] MEDS: ALBUT/IPRATROP 3MG/0.5MG NEB 3 ML VIAL NEB SCH ×4 (00:29→19:16)
[2022-09-16] MEDS: LEVOTHYROXINE SODIUM 100 MCG TABLET PO SCH (05:48)
[2022-09-16] MEDS: HEPARIN SOD 5,000 UNIT/0.5 ML VIAL SQ SCH ×3 (05:49→20:53)
[2022-09-16 06:24] LABS: Hematocrit (blood only) 33.4 % (34.1-44.9); Hemoglobin 11.5 g/dl (12.0-16.0); Mean Corpuscular Hgb Conc 34.4 g/dL (32.0-36.0); Mean Corpuscular Volume 87.2 fL (80.0-100.0); Mean Platelet Volume 11.4 fL (9.4-12.3); Nucleated RBC # (auto) 0.03 K/uL (0-0); Nucleated RBC % (auto) 0.3 %; Platelet Count 293 K/uL (130-400); RDW Coefficient of Variation 16.6 % (11.5-14.5); RDW Standard Deviation 53.1 fL (36.4-46.3); Red Blood Count 3.83 M/uL (3.93-5.22); White Blood Count 10.32 K/ul (4.8-10.8)
[2022-09-16] MEDS: SODIUM CHLOR 7% 4 ML NEB NEB SCH ×2 (07:04→19:16)
[2022-09-16 07:22] LABS: BUN Creatinine Ratio 23.2 (10-20); Calcium 8.7 mg/dl (8.5-10.1); Creatinine Clr Calc Pharmacy 64.7 ml/min; Est GFR (African American) 91.4 ml/min; Est GFR (Non-African American) 78.8 ml/min; Potassium 3.3 mmol/L (3.5-5.1)
[2022-09-16] MEDS: FERROUS SULFATE 325 MG TAB PO SCH ×2 (09:35→09:50)
[2022-09-16] MEDS: DULoxetine HCL 60 MG CAP PO SCH ×2 (09:35→10:01)
[2022-09-16] MEDS: LOSARTAN POTASSIUM 50 MG TAB PO SCH ×2 (09:35→09:51)
[2022-09-16] MEDS: PANTOprazole 40 MG TAB PO SCH ×2 (09:35→09:51)
[2022-09-16] MEDS: OLANZAPINE 2.5 MG TAB PO SCH ×3 (09:35→20:54)
[2022-09-16] MEDS: D5W AND 1/2NSS 1,000 ML IV SCH ×2 (09:37→21:47)
[2022-09-16] MEDS: DOXYCYCLINE HYCLATE 100 MG in DEXTROSE 5% 100 ML IV SCH (10:12)
[2022-09-16] MEDS: POTASSIUM CHLORIDE / WTR 10 MEQ/100 ML PLCT IV SCH ×2 (12:22→13:32)
--- NOTE | 2022-09-16 20:52 | Hospitalist Progress Note ---
Date of Service September 16, 2022 Assessment & Plan (1) Sepsis: (2) Pneumonia: Plan: Present on admission with SOB with hypoxia and confusion Recent history of respiratory syncytial virus infection in SNF Met sepsis criteria with leukocytosis, febrile, tachycradia with positive blood pressure CTA chest showed extensive bilateral airspace consolidation is typical for pneumonia/aspiration pneumonitis CXR showed cardiomegaly with pulmonary vascular congestion. Left midlung and left basilar predominant airspace opacities with small left pleural effusion. Blood culture positive for Streptococcus pneumonia MRSA nares negative Currently on IV Zosyn and doxycycline Abx deescalate from IV Zosyn to Ceftriaxone Oxygen weaned from high flow to NC Continue airway clearance with duo nebs, hypertonic saline. Starting on diet Will monitor for aspiration (3) Streptococcal bacteremia: Plan: Blood cx grew strep pneumonia IV Zosyn deescalate to IV ceftriaxone Continue IV doxycycline Repeat blood cx pending Continue monitor (4) Hypernatremia: Plan: Sodium 138 today Currently on D5 1/2 NS at 50 cc/h, will d/c Monitor BMP (5) Hypokalemia: Plan: K 3.3 today K replaced Continue monitor BMP Plan Chronic conditions: History of breast cancer and endometrial cancer, status post surgery. History of hypertension. Losartan with holding parameters. Depression on duloxetine, when able to take po History of hypothyroidism, on Synthroid. History of dementia, Alzheimer's dementia, severe, not able to recognize family members, oriented to name only. Continue to monitor for delirium. Continue Zyprexa home medications. Ambulatory dysfunction. The patient remained only wheelchair bound and needs assistance to get into the wheelchair. Deep venous thrombosis prophylaxis: on heparin subcutaneous. Updated son about patient's current condition. Son acknowledge patient's critical condition. Continue medical intervention with antibiotic and supportive care for now. If she does not respond well; family wants her to be as comfortable as possible. Patient is DNR/DNI. Admission and Anticipated Discharge Date Admission Date: September 13, 2022 Subjective Patient seen and examined at bedside for follow Lying in bed with no acute distress Pt is looking more awake today She was able to open her eyes and spoke a few words with her son today Son at bedside and provide with details and answered all his questions Review of Systems Review of Systems: All systems reviewed & are unremarkable except as noted in Subjective Physical Exam Physical Exam: Constitutional: no acute distress Respiratory: coarse BS Cardiovascular: RRR, no murmur, no edema Vessels: no JVD or carotid bruit Chest: normal inspection of chest Abdomen: normal bowel sounds, soft, nontender, no hepatosplenomegaly Musculoskeletal: no cyanosis or clubbing Skin: no rashes, warm and dry normal turgor Neurologic: awake, move all 4 extremities, spoke few words with son Results & Data Results & Data ([facility]) Vital Signs (Past 12 Hours) Vital Signs Temp Pulse Pulse Resp BP BP Pulse Ox 09/16/22 19:26 37.5 C 86 20 144/72 H 93 09/16/22 19:16 71 18 92 09/16/22 18:13 94 09/16/22 17:00 37.0 C 69 18 148/62 H 97 09/16/22 14:09 84 09/16/22 12:57 70 16 91 09/16/22 12:00 36.9 C 78 16 139/72 97 09/16/22 11:04 70 18 91 O2 Del Method O2 Flow Rate 09/16/22 19:26 High Flow Nasal Cannula 6 09/16/22 19:16 Nasal Cannula 6 09/16/22 18:13 Nasal Cannula 5 09/16/22 17:00 Room Air 09/16/22 14:09 09/16/22 12:57 Nasal Cannula 4 09/16/22 12:00 Room Air 09/16/22 11:04 Nasal Cannula 8
[2022-09-16] MEDS: cefTRIAXone SODIUM 2,000 MG in DEXTROSE 5% 50 ML IV SCH (20:53)
[2022-09-16] MEDS: MELATONIN 3 MG TAB PO SCH (20:54)
[2022-09-16] MEDS: traZODone HCL 50 MG TAB PO SCH (20:54)
[2022-09-17] MEDS: ALBUT/IPRATROP 3MG/0.5MG NEB 3 ML VIAL NEB SCH ×3 (00:10→18:28)
[2022-09-17] MEDS: DOXYCYCLINE HYCLATE 100 MG in DEXTROSE 5% 100 ML IV SCH ×3 (00:12→22:04)
[2022-09-17] MEDS: SODIUM CHLOR 7% 4 ML NEB NEB SCH ×2 (05:18→17:58)
[2022-09-17] MEDS: HEPARIN SOD 5,000 UNIT/0.5 ML VIAL SQ SCH ×3 (06:08→22:05)
[2022-09-17] MEDS: LEVOTHYROXINE SODIUM 100 MCG TABLET PO SCH (06:08)
[2022-09-17 08:25] LABS: BUN Creatinine Ratio 16.9 (10-20); Calcium 8.4 mg/dl (8.5-10.1); Est GFR (African American) 93.2 ml/min; Est GFR (Non-African American) 80.4 ml/min; Magnesium 1.2 mg/dl (1.7-2.4); Potassium 3.4 mmol/L (3.5-5.1)
[2022-09-17] MEDS: LOSARTAN POTASSIUM 50 MG TAB PO SCH (10:15)
[2022-09-17] MEDS: DULoxetine HCL 60 MG CAP PO SCH (10:15)
[2022-09-17] MEDS: PANTOprazole 40 MG TAB PO SCH (10:15)
[2022-09-17] MEDS: OLANZAPINE 2.5 MG TAB PO SCH ×2 (10:16→20:17)
[2022-09-17] MEDS: FERROUS SULFATE 325 MG TAB PO SCH (10:16)
[2022-09-17] MEDS: POTASSIUM CHLORIDE / WTR 10 MEQ/100 ML PLCT IV SCH ×2 (10:27→11:40)
[2022-09-17] MEDS: MAGNESIUM SULFATE / D5W 1 GM/100 ML BAG IV SCH ×4 (10:27→16:34)
--- NOTE | 2022-09-17 15:16 | Hospitalist Progress Note ---
Date of Service September 17, 2022 Assessment & Plan (1) Sepsis: (2) Pneumonia: Plan: Present on admission with SOB with hypoxia and confusion Recent history of respiratory syncytial virus infection in SNF Met sepsis criteria with leukocytosis, febrile, tachycradia with positive blood pressure CTA chest showed extensive bilateral airspace consolidation is typical for pneumonia/aspiration pneumonitis CXR showed cardiomegaly with pulmonary vascular congestion. Left midlung and left basilar predominant airspace opacities with small left pleural effusion. Blood culture positive for Streptococcus pneumonia MRSA nares negative Currently on IV Zosyn and doxycycline Abx deescalate from IV Zosyn to Ceftriaxone Oxygen weaned from high flow to NC Continue airway clearance with duo nebs, hypertonic saline. Tolerated diet Continue monitor closely for aspiration (3) Streptococcal bacteremia: Plan: Blood cx grew strep pneumonia IV Zosyn deescalate to IV ceftriaxone Continue IV doxycycline Repeat blood cx no growth so far Continue IV ceftriaxone for now (4) Hypernatremia: Plan: Sodium 136 today Received D5 1/2 NS Stable (5) Hypokalemia: Plan: K 3.4 today K replaced Continue monitor BMP Hypomagnesemia Mg 1.2 today Mg replaced Continue monitor Plan Chronic conditions: History of breast cancer and endometrial cancer, status post surgery. History of hypertension. Losartan with holding parameters. Depression on duloxetine, when able to take po History of hypothyroidism, on Synthroid. History of dementia, Alzheimer's dementia, severe, not able to recognize family members, oriented to name only. Continue to monitor for delirium. Continue Zyprexa home medications. Ambulatory dysfunction. The patient remained only wheelchair bound and needs assistance to get into the wheelchair. Deep venous thrombosis prophylaxis: on heparin subcutaneous. Updated son about patient's current condition. Son acknowledge patient's critical condition. Continue medical intervention with antibiotic and supportive care for now. If she does not respond well; family wants her to be as comfortable as possible. Patient is DNR/DNI. Admission and Anticipated Discharge Date Admission Date: September 13, 2022 Subjective Patient seen and examined at bedside for follow Lying in bed with no acute distress Pt is looking better every day Son said that she is near to her baseline She is more awake and spoke to me and thanked me today Son at bedside and provided with update Son at bedside and provide with details and answered all his questions Review of Systems Review of Systems: All systems reviewed & are unremarkable except as noted in Subjective Physical Exam Physical Exam: Constitutional: no acute distress Respiratory: poor air Cardiovascular: RRR, no murmur, no edema Vessels: no JVD or carotid bruit Chest: normal inspection of chest Abdomen: normal bowel sounds, soft, nontender, no hepatosplenomegaly Musculoskeletal: no cyanosis or clubbing Skin: no rashes, warm and dry normal turgor Neurologic: awake, move all 4 extremities, spoke few words with son Results & Data Results & Data ([facility]) Vital Signs (Past 12 Hours) Vital Signs Temp Pulse Pulse Resp BP BP Pulse Ox 09/17/22 14:00 86 09/17/22 13:22 36.7 C 90 18 145/92 H 93 09/17/22 05:59 71 09/17/22 08:00 09/17/22 07:45 37.1 C 84 20 103/87 92 09/17/22 03:11 37.2 C 79 19 117/59 L 92 O2 Del Method O2 Flow Rate 09/17/22 14:00 09/17/22 13:22 Nasal Cannula 2 09/17/22 05:59 09/17/22 08:00 Nasal Cannula 2 09/17/22 07:45 High Flow Nasal Cannula 6 09/17/22 03:11 High Flow Nasal Cannula 6
[2022-09-17] MEDS ORDERED: ALBUT/IPRATROP 3MG/0.5MG NEB 3 ML VIAL ONE (17:32)
[2022-09-17] MEDS: cefTRIAXone SODIUM 2,000 MG in DEXTROSE 5% 50 ML IV SCH (20:13)
[2022-09-17] MEDS: traZODone HCL 50 MG TAB PO SCH (20:17)
[2022-09-17] MEDS: MELATONIN 3 MG TAB PO SCH (20:17)
[2022-09-18] MEDS: HEPARIN SOD 5,000 UNIT/0.5 ML VIAL SQ SCH ×3 (05:13→22:34)
[2022-09-18] MEDS: LEVOTHYROXINE SODIUM 100 MCG TABLET PO SCH (05:30)
[2022-09-18] MEDS: SODIUM CHLOR 7% 4 ML NEB NEB SCH ×2 (05:32→19:19)
[2022-09-18] MEDS: ALBUT/IPRATROP 3MG/0.5MG NEB 3 ML VIAL NEB SCH ×2 (05:32→19:18)
[2022-09-18] MEDS: LOSARTAN POTASSIUM 50 MG TAB PO SCH (08:47)
[2022-09-18] MEDS: PANTOprazole 40 MG TAB PO SCH (08:48)
[2022-09-18] MEDS: DULoxetine HCL 60 MG CAP PO SCH (08:48)
[2022-09-18] MEDS: FERROUS SULFATE 325 MG TAB PO SCH (08:48)
[2022-09-18] MEDS: OLANZAPINE 2.5 MG TAB PO SCH ×3 (08:48→21:17)
[2022-09-18 08:50] LABS: BUN Creatinine Ratio 13.2 (10-20); Calcium 8.6 mg/dl (8.5-10.1); Est GFR (African American) 91.8 ml/min; Est GFR (Non-African American) 79.2 ml/min; Magnesium 2.1 mg/dl (1.7-2.4); Potassium 3.7 mmol/L (3.5-5.1)
[2022-09-18] MEDS: DOXYCYCLINE HYCLATE 100 MG in DEXTROSE 5% 100 ML IV SCH ×2 (11:47→22:36)
--- NOTE | 2022-09-18 15:45 | Hospitalist Progress Note ---
Date of Service September 18, 2022 Assessment & Plan (1) Sepsis: (2) Streptococcal bacteremia: (3) Pneumonia: Plan: Present on admission with SOB with hypoxia and confusion Recent history of respiratory syncytial virus infection in SNF Met sepsis criteria with leukocytosis, febrile, tachycradia with positive blood pressure CTA chest showed extensive bilateral airspace consolidation is typical for pneumonia/aspiration pneumonitis CXR showed cardiomegaly with pulmonary vascular congestion. Left midlung and left basilar predominant airspace opacities with small left pleural effusion. Blood culture on admission positive for Streptococcus pneumonia Repeat blood culture no growth so far Plan; -Continue on ceftriaxone for now. Wean oxygen down to maintain saturation over 90% -Continue airway clearance with hypertonic saline and DuoNeb -Aspiration precautions (4) Hypernatremia: Plan: Sodium 138 Received D5 1/2 NS Stable (5) Hypokalemia: Plan: Potassium 3.7 today Continue monitor BMP Hypomagnesemia 2.1 today Continue monitor Plan Chronic conditions: History of breast cancer and endometrial cancer, status post surgery. History of hypertension. Losartan with holding parameters. Depression on duloxetine, when able to take po History of hypothyroidism, on Synthroid. History of dementia, Alzheimer's dementia, severe, not able to recognize family members, oriented to name only. Continue to monitor for delirium. Continue Zyprexa home medications. Ambulatory dysfunction. The patient remained only wheelchair bound and needs assistance to get into the wheelchair. Deep venous thrombosis prophylaxis: on heparin subcutaneous. PT OT ordered DVT Ppx Heparin Son updated over the phone CODE STATUS DNR/DNI Admission and Anticipated Discharge Date Admission Date: September 13, 2022 Subjective Patient seen and examined at bedside. She was slightly lethargic; was awake to verbal stimuli On 5 L of oxygen by nasal cannula. Review of Systems Review of Systems: All systems reviewed & are unremarkable except as noted in Subjective Physical Exam Physical Exam: Constitutional:Lethargic; responds to verbal stimuli. Respiratory: Bilateral coarse crackle heard; more on left side. slightly improved. Cardiovascular: RRR, no murmur, no edema Vessels: no JVD or carotid bruit Chest: normal inspection of chest Abdomen: normal bowel sounds, soft, nontender, no hepatosplenomegaly Musculoskeletal: no cyanosis or clubbing, extremities motor strength 5/5 Skin: no rashes, warm and dry normal turgor Neurologic: Lethargic; awakens to verbal stimuli. Results & Data Results & Data ([facility]) Vital Signs (Past 12 Hours) Vital Signs Temp Pulse Pulse Resp BP Pulse Ox O2 Del Method 09/18/22 11:42 37 C 66 18 97/61 L 91 Nasal Cannula 09/18/22 08:00 61 09/18/22 06:43 36.5 C 66 19 135/82 93 Nasal Cannula 09/18/22 05:32 66 22 92 Nasal Cannula O2 Flow Rate 09/18/22 11:42 5 09/18/22 08:00 09/18/22 06:43 3 09/18/22 05:32 4 Laboratory Results Laboratory Results WBC 10.32 K/ul (4.8-10.8) 09/16/22 05:59 RBC 3.83 M/uL (3.93-5.22) L 09/16/22 05:59 Hgb 11.5 g/dl (12.0-16.0) L 09/16/22 05:59 Hct 33.4 % (34.1-44.9) L 09/16/22 05:59 MCV 87.2 fL (80.0-100.0) 09/16/22 05:59 MCH 30.0 pg (25.0-34.0) 09/16/22 05:59 MCHC 34.4 g/dL (32.0-36.0) 09/16/22 05:59 RDW Std Deviation 53.1 fL (36.4-46.3) H 09/16/22 05:59 RDW Coeff of Tanesha 16.6 % (11.5-14.5) H 09/16/22 05:59 Plt Count 293 K/uL (130-400) 09/16/22 05:59 MPV 11.4 fL (9.4-12.3) 09/16/22 05:59 Immature Gran % (Auto) 4.2 % 09/15/22 07:47 Neut % (Auto) 81.3 % 09/15/22 07:47 Lymph % (Auto) 8.4 % 09/15/22 07:47 [place] % (Auto) 4.6 % 09/15/22 07:47 Eos % (Auto) 1.0 % 09/15/22 07:47 Baso % (Auto) 0.5 % 09/15/22 07:47 Neut # (Auto) 9.31 K/uL (1.4-6.5) H 09/15/22 07:47 Lymph # (Auto) 0.96 K/uL (1.2-3.4) L 09/15/22 07:47 [place] # (Auto) 0.53 K/uL (0.24-0.82) 09/15/22 07:47 Eos # (Auto) 0.12 K/uL (0-0.50) 09/15/22 07:47 Baso # (Auto) 0.06 K/uL (0-0.2) 09/15/22 07:47 Immature Gran # (Auto) 0.48 K/uL (0.00-0.02) H 09/15/22 07:47 Absolute Nucleated RBC 0.03 K/uL (0-0) H 09/16/22 05:59 Nucleated RBC % (auto) 0.3 % 09/16/22 05:59 Neutrophils % (Manual) 84 % 09/14/22 05:00 Lymphocytes % (Manual) 10 % 09/14/22 05:00 Monocytes % (Manual) 6 % 09/14/22 05:00 Neutrophils # (Manual) 11.78 K/uL (1.4-6.5) H 09/14/22 05:00 Lymphocytes # (Manual) 1.40 K/uL (1.2-3.4) 09/14/22 05:00 Monocytes # (Manual) 0.84 K/uL (0.24-0.82) H 09/14/22 05:00 Toxic Granulation 1+ 09/15/22 07:47 Toxic Vacuolation 1+ 09/15/22 07:47 Dohle Bodies 1+ 09/13/22 18:57 Polychromasia 1+ 09/15/22 07:47 Target Cells 1+ 09/15/22 07:47 Echinocytes 1+ 09/15/22 07:47 Acanthocytes (Spur) 1+ 09/13/22 18:57 ABG pH 7.48 (7.35-7.45) H 09/13/22 18:58 ABG pCO2 32 mmHg (35-46) L 09/13/22 18:58 ABG pO2 69 mmHg (80-95) L 09/13/22 18:58 ABG HCO3 24 mmol/L (19-24) 09/13/22 18:58 ABG O2 Saturation 95.3 % (90-95) H 09/13/22 18:58 ABG Base Excess 0.9 mEq/L (-9-1.8) 09/13/22 18:58 Yair Test POS (Pos) 09/13/22 18:58 Oxygen Given 15 L 09/13/22 18:58 Sodium 138 mmol/L (136-145) 09/18/22 07:33 Potassium 3.7 mmol/L (3.5-5.1) 09/18/22 07:33 Chloride 109 mmol/L (98-107) H 09/18/22 07:33 Carbon Dioxide 24 mmol/L (21-32) 09/18/22 07:33 Anion Gap 5 (3-11) 09/18/22 07:33 BUN 9 mg/dl (6-23) 09/18/22 07:33 Creatinine 0.68 mg/dl (0.6-1.2) 09/18/22 07:33 Est Cr Clr Drug Dosing 66.0 ml/min 09/18/22 07:33 Est GFR ( Amer) 91.8 ml/min 09/18/22 07:33 Est GFR (Non-Af Amer) 79.2 ml/min 09/18/22 07:33 BUN/Creatinine Ratio 13.2 (10-20) 09/18/22 07:33 Glucose 96 mg/dl (70-99(Fasting)) 09/18/22 07:33 Calcium 8.6 mg/dl (8.5-10.1) 09/18/22 07:33 Phosphorus 3.0 mg/dl (2.5-4.9) 09/18/22 07:33 Magnesium 2.1 mg/dl (1.7-2.4) 09/18/22 07:33 Total Bilirubin 0.8 mg/dl (0.2-1.0) 09/13/22 18:57 AST 15 U/L (13-39) 09/13/22 18:57 ALT 21 U/L (7-52) 09/13/22 18:57 Alkaline Phosphatase 97 U/L (34-104) 09/13/22 18:57 Troponin I High Sens 21.2 pg/ml (0-14) H 09/14/22 11:25 Total Protein 6.6 gm/dl (6.0-8.3) 09/13/22 18:57 Albumin 3.0 gm/dl (3.4-5.0) L 09/13/22 18:57 Globulin 3.6 gm/dl (2.5-4.0) 09/13/22 18:57 Albumin/Globulin Ratio 0.8 (0.9-2) L 09/13/22 18:57 Procalcitonin 5.24 ng/ml (0-0.5) H 09/13/22 18:57 Urine Color Dark Yellow 09/13/22 21:31 Urine Appearance Cloudy (Clear) A 09/13/22 21: Urine pH 5.5 (4.5-7.5) 09/13/22 21:31 Ur Specific [place] 1.027 (1.000-1.030) 09/13/22 21:31 Urine Protein 2+ (Negative) H 09/13/22 21:31 Urine Glucose (UA) Negative (Negative) 09/13/22 21:31 Urine Ketones Trace (Negative) H 09/13/22 21:31 Urine Blood Negative (Negative) 09/13/22 21: Urine Nitrite Negative (Negative) 09/13/22 21: Urine Bilirubin Negative (Negative) 09/13/22 21:31 Urine Urobilinogen Negative (Negative) 09/13/22 21:31 Ur Leukocyte Esterase Trace (Negative) H 09/13/22 21:31 Urine WBC (Auto) 1-5 /hpf (0-5) 09/13/22 21: Urine RBC (Auto) 0-4 /hpf (0-4) 09/13/22 21:31 U Hyaline Cast (Auto) 5-10 /lpf (0-5) H 09/13/22 21:31 U Epithel Cells (Auto) 20-30 /lpf (0-5) H 09/13/22 21:31 Urine Bacteria (Auto) Negative (Negative) 09/13/22 21:31 Urine Yeast Not Reportable 09/13/22 21:31 Nasal Screen MRSA (PCR) Cancelled 09/14/22 16:00 SARS-CoV-2 (PCR) NEGATIVE (Negative) 09/13/22 22:36 Influenza Type A (PCR) Negative (Neg) 09/13/22 22:36 Influenza Type B (PCR) Negative (Neg) 09/13/22 22:36 RSV (RT-PCR) Negative (Neg) 09/13/22 22:36 SARS-CoV-2, RNA, NAAT NEGATIVE (NEGATIVE) 09/13/22 22:26 Streptococcus sp PCR DETECTED (NotDetected) A 09/13/22 18:57 Strep pneumoniae (PCR) DETECTED (NotDetected) A 09/13/22 18:57 Bld Cult ID Panel PCR See PCR Comment (NotDetected) 09/13/22 18:57 Impressions Chest X-Ray 09/13/22 18:35 XR chest 1V portable HISTORY: 87 years-old Female Dyspnea acute shortness of breath COMPARISON: None TECHNIQUE: AP view of the chest FINDINGS: Cardiac silhouette is enlarged. Pulmonary vascular congestion. Perihilar, left basilar and left midlung airspace opacities. No pneumothorax identified. Probable small left pleural effusion. Degenerative changes of the shoulders and spine with surgical clips of the left axilla. IMPRESSION: 1. Cardiomegaly with pulmonary vascular congestion. 2. Left midlung and left basilar predominant airspace opacities with small left pleural effusion. Correlate clinically to exclude pneumonia. ACT 112: Negative or not required by law. The above report was generated using voice recognition software. It may contain grammatical, syntax or spelling errors. Electronically signed by: Elton Bishop M.D. 09/13/2022 7:38 PM Chest CTA 09/14/22 07:27 CT ANGIOGRAM OF THE CHEST CLINICAL HISTORY: Cough and dyspnea. COMPARISON STUDY: Chest x-ray dated 09/13/2020 2P TECHNIQUE: Following the IV administration of 120 cc of Optiray 320, CT angiogram of the chest was performed from the upper abdomen to the thoracic inlet utilizing the pulmonary embolus protocol. Images are reviewed in the axial, sagittal, and coronal planes. 3-D MIPS images are created and assessed. IV contrast was administered without complication. A dose lowering technique was utilized adhering to the principles of ALARA. The examination is significantly degraded by motion artifact, as well as by streak artifact from the arms which could not be elevated above the chest. CT DOSE: 484.84 mGy.cm FINDINGS: Thyroid: Mildly enlarged and heterogeneous. Thoracic aorta: There is atherosclerotic calcification of the thoracic aorta, which is normal in caliber and demonstrates standard 3-vessel arch anatomy. No dissection is seen. Pulmonary vasculature: The pulmonary trunk is normal in caliber. There are no filling defects identified in main, lobar, or proximal segmental pulmonary branches to suggest pulmonary embolus. Evaluation of the segmental and subsegmental branches is degraded by motion artifact. Heart: The heart is enlarged and without pericardial effusion. The coronary arteries are densely calcified. Lungs and pleural spaces: There is dense dependent airspace consolidation seen throughout both lungs, left greater than right. Moderate patchy consolidation is seen in the upper lobes. There are trace pleural effusions. The trachea and central airways are patent. Mediastinum: There is no mediastinal lymphadenopathy. Lucia: The lucia are obscured by adjacent consolidation. Axillae: Surgical clips are noted in the left axilla. There is no axillary lymphadenopathy. Upper abdomen: There is a moderate to large hiatal hernia. Partially visualized upper abdominal viscera is otherwise grossly unremarkable. Skeletal structures: The skeletal structures are osteopenic. Advanced degenerative change and hyperkyphosis is noted throughout the thoracic spine. Advanced arthritic change is seen in the shoulders. No lytic or blastic bony lesions are seen. Soft tissues: Postsurgical change is noted in the left breast. IMPRESSION: 1. Streak and motion compromised examination. 2. There is no evidence of central pulmonary embolus in the main, lobar, or proximal segmental pulmonary arteries. Evaluation of the segmental and subsegmental branches is compromised by motion artifact. 3. Extensive bilateral airspace consolidation is typical for pneumonia/aspir ation pneumonitis. Clinical correlation will be required and radiographic follow-up to resolution is recommended. 4. Trace pleural effusions. 5. Cardiomegaly. 6. Moderate to large hiatal hernia. 7. Additional findings as above. ACT 112: Negative or not required by law. Electronically signed by: Issac Shipman M.D. 09/14/2022 10:01 AM
[2022-09-18] MEDS: cefTRIAXone SODIUM 2,000 MG in DEXTROSE 5% 50 ML IV SCH (20:45)
[2022-09-18] MEDS: MELATONIN 3 MG TAB PO SCH ×2 (21:01→21:18)
[2022-09-18] MEDS: traZODone HCL 50 MG TAB PO SCH ×2 (21:02→21:17)
[2022-09-19] MEDS: HEPARIN SOD 5,000 UNIT/0.5 ML VIAL SQ SCH ×3 (05:39→22:25)
[2022-09-19] MEDS: LEVOTHYROXINE SODIUM 100 MCG TABLET PO SCH ×2 (05:40→06:03)
[2022-09-19] MEDS: SODIUM CHLOR 7% 4 ML NEB NEB SCH ×2 (05:42→18:56)
[2022-09-19] MEDS: ALBUT/IPRATROP 3MG/0.5MG NEB 3 ML VIAL NEB SCH ×2 (05:42→18:56)
[2022-09-19 06:35] LABS: Hematocrit (blood only) 31.7 % (34.1-44.9); Hemoglobin 10.8 g/dl (12.0-16.0); Mean Corpuscular Hemoglobin 30.2 pg (25.0-34.0); Mean Corpuscular Hgb Conc 34.1 g/dL (32.0-36.0); Mean Corpuscular Volume 88.5 fL (80.0-100.0); Mean Platelet Volume 10.6 fL (9.4-12.3); Nucleated RBC # (auto) 0.02 K/uL (0-0); Nucleated RBC % (auto) 0.2 %; Platelet Count 364 K/uL (130-400); RDW Standard Deviation 51.8 fL (36.4-46.3); Red Blood Count 3.58 M/uL (3.93-5.22); White Blood Count 11.57 K/ul (4.8-10.8)
[2022-09-19 06:53] LABS: Basophils # (auto) 0.05 K/uL (0-0.2); Basophils % (auto) 0.4 %; Echinocytes 1+; Eosinophils # (auto) 0.18 K/uL (0-0.50); Eosinophils % (auto) 1.6 %; Immature Granulocytes # (auto) 0.59 K/uL (0.00-0.02); Immature Granulocytes % (auto) 5.1 %; Lymphocytes # (auto) 1.65 K/uL (1.2-3.4); Lymphocytes % (auto) 14.3 %; Monocytes # (auto) 0.58 K/uL (0.24-0.82); Neutrophils # (auto) 8.52 K/uL (1.4-6.5); Neutrophils % (auto) 73.6 %; Polychromasia 1+
[2022-09-19 07:07] LABS: Calcium 8.8 mg/dl (8.5-10.1); Creatinine Clr Calc Pharmacy 75.1 ml/min; Est GFR (African American) 95.7 ml/min; Est GFR (Non-African American) 82.5 ml/min; Potassium 3.7 mmol/L (3.5-5.1)
[2022-09-19] MEDS: PANTOprazole 40 MG TAB PO SCH (11:06)
[2022-09-19] MEDS: DULoxetine HCL 60 MG CAP PO SCH (11:06)
[2022-09-19] MEDS: FERROUS SULFATE 325 MG TAB PO SCH (11:06)
[2022-09-19] MEDS: LOSARTAN POTASSIUM 50 MG TAB PO SCH (11:06)
[2022-09-19] MEDS: OLANZAPINE 2.5 MG TAB PO SCH ×2 (11:06→20:55)
--- NOTE | 2022-09-19 11:12 | Hospitalist Progress Note ---
Date of Service September 19, 2022 Assessment & Plan (1) Sepsis: (2) Streptococcal bacteremia: (3) Pneumonia: Plan: Present on admission with SOB with hypoxia and confusion Recent history of respiratory syncytial virus infection in SNF Met sepsis criteria with leukocytosis, febrile, tachycradia with positive blood pressure CTA chest showed extensive bilateral airspace consolidation is typical for pneumonia/aspiration pneumonitis CXR showed cardiomegaly with pulmonary vascular congestion. Left midlung and left basilar predominant airspace opacities with small left pleural effusion. Blood culture on admission positive for Streptococcus pneumonia Repeat blood culture no growth so far Plan; -Continue on ceftriaxone for now. Plan to provide 10days of antibiotics from the day culture was negative (till 09/23/2022). Wean oxygen down to maintain saturation over 90% -Continue airway clearance with hypertonic saline and DuoNeb -Aspiration precautions - PT OT ordered. (4) Hypernatremia: Plan: resolved. Encourage oral hydration (5) Hypokalemia: Plan: Potassium 3.7 today Continue monitor BMP Hypomagnesemia 2.1 today Continue monitor Plan Chronic conditions: History of breast cancer and endometrial cancer, status post surgery. History of hypertension. Losartan with holding parameters. Depression on duloxetine, when able to take po History of hypothyroidism, on Synthroid. History of dementia, Alzheimer's dementia, severe, not able to recognize family members, oriented to name only. Continue to monitor for delirium. Continue Zyprexa home medications. Ambulatory dysfunction. The patient remained only wheelchair bound and needs assistance to get into the wheelchair. Deep venous thrombosis prophylaxis: on heparin subcutaneous. PT OT ordered DVT ppx Disposition- patient continues to be hospitalized as she continues to lethargic; likely due to sepsis. Continue on iv antiboitics. PT OT pending. Admission and Anticipated Discharge Date Admission Date: September 13, 2022 Subjective Patient seen and examined at bedside. She responds to voice and looks around. Unable to communicate otherwise. Oxygen saturation improved to 2 L by nasal cannula. Review of Systems Review of Systems: All systems reviewed & are unremarkable except as noted in Subjective Physical Exam Physical Exam: Constitutional: Awakens by verbal stimuli; comfortable. Not in respiratory distress Respiratory: Bilateral coarse crackle heard; more on left side. slightly improved. Cardiovascular: RRR, no murmur, no edema Vessels: no JVD or carotid bruit Chest: normal inspection of chest Abdomen: normal bowel sounds, soft, nontender, no hepatosplenomegaly Musculoskeletal: no cyanosis or clubbing, extremities motor strength 5/5 Skin: no rashes, warm and dry normal turgor Neurologic: Occasional follow commands. Results & Data Results & Data ([facility]) Vital Signs (Past 12 Hours) Vital Signs Temp Pulse Pulse Resp BP Pulse Ox O2 Del Method 09/19/22 10:50 36.6 C 68 18 118/61 91 Nasal Cannula 09/19/22 07:00 72 09/19/22 08:00 36.6 C 73 20 141/69 H 90 Nasal Cannula 09/19/22 06:28 90 Nasal Cannula 09/19/22 06:27 85 L Nasal Cannula 09/19/22 05:42 70 20 93 Nasal Cannula 09/19/22 04:07 36.6 C 71 19 136/55 L 91 Nasal Cannula 09/18/22 23:52 36.7 C 68 20 126/62 92 Nasal Cannula O2 Flow Rate 09/19/22 10:50 2 09/19/22 07:00 09/19/22 08:00 2 09/19/22 06:28 2 09/19/22 06:27 1 09/19/22 05:42 1 09/19/22 04:07 2 09/18/22 23:52 2 Laboratory Results Laboratory Results WBC 11.57 K/ul (4.8-10.8) H 09/19/22 06:16 RBC 3.58 M/uL (3.93-5.22) L 09/19/22 06:16 Hgb 10.8 g/dl (12.0-16.0) L 09/19/22 06:16 Hct 31.7 % (34.1-44.9) L 09/19/22 06:16 MCV 88.5 fL (80.0-100.0) 09/19/22 06:16 MCH 30.2 pg (25.0-34.0) 09/19/22 06:16 MCHC 34.1 g/dL (32.0-36.0) 09/19/22 06:16 RDW Std Deviation 51.8 fL (36.4-46.3) H 09/19/22 06:16 RDW Coeff of [place] 16.0 % (11.5-14.5) H 09/19/22 06:16 Plt Count 364 K/uL (130-400) 09/19/22 06:16 MPV 10.6 fL (9.4-12.3) 09/19/22 06:16 Immature Gran % (Auto) 5.1 % 09/19/22 06:16 Neut % (Auto) 73.6 % 09/19/22 06:16 Lymph % (Auto) 14.3 % 09/19/22 06:16 [place] % (Auto) 5.0 % 09/19/22 06:16 Eos % (Auto) 1.6 % 09/19/22 06:16 Baso % (Auto) 0.4 % 09/19/22 06:16 Neut # (Auto) 8.52 K/uL (1.4-6.5) H 09/19/22 06:16 Lymph # (Auto) 1.65 K/uL (1.2-3.4) 09/19/22 06:16 [place] # (Auto) 0.58 K/uL (0.24-0.82) 09/19/22 06:16 Eos # (Auto) 0.18 K/uL (0-0.50) 09/19/22 06:16 Baso # (Auto) 0.05 K/uL (0-0.2) 09/19/22 06:16 Immature Gran # (Auto) 0.59 K/uL (0.00-0.02) H 09/19/22 06:16 Absolute Nucleated RBC 0.02 K/uL (0-0) H 09/19/22 06:16 Nucleated RBC % (auto) 0.2 % 09/19/22 06:16 Neutrophils % (Manual) 84 % 09/14/22 05:00 Lymphocytes % (Manual) 10 % 09/14/22 05:00 Monocytes % (Manual) 6 % 09/14/22 05:00 Neutrophils # (Manual) 11.78 K/uL (1.4-6.5) H 09/14/22 05:00 Lymphocytes # (Manual) 1.40 K/uL (1.2-3.4) 09/14/22 05:00 Monocytes # (Manual) 0.84 K/uL (0.24-0.82) H 09/14/22 05:00 Toxic Granulation 1+ 09/15/22 07:47 Toxic Vacuolation 1+ 09/15/22 07:47 Dohle Bodies 1+ 09/13/22 18:57 Polychromasia 1+ 09/19/22 06:16 Target Cells 1+ 09/15/22 07:47 Echinocytes 1+ 09/19/22 06:16 Acanthocytes (Spur) 1+ 09/13/22 18:57 ABG pH 7.48 (7.35-7.45) H 09/13/22 18:58 ABG pCO2 32 mmHg (35-46) L 09/13/22 18:58 ABG pO2 69 mmHg (80-95) L 09/13/22 18:58 ABG HCO3 24 mmol/L (19-24) 09/13/22 18:58 ABG O2 Saturation 95.3 % (90-95) H 09/13/22 18:58 ABG Base Excess 0.9 mEq/L (-9-1.8) 09/13/22 18:58 Yair Test POS (Pos) 09/13/22 18:58 Oxygen Given 15 L 09/13/22 18:58 Sodium 139 mmol/L (136-145) 09/19/22 06:16 Potassium 3.7 mmol/L (3.5-5.1) 09/19/22 06:16 Chloride 110 mmol/L (98-107) H 09/19/22 06:16 Carbon Dioxide 23 mmol/L (21-32) 09/19/22 06:16 Anion Gap 6 (3-11) 09/19/22 06:16 BUN 12 mg/dl (6-23) 09/19/22 06:16 Creatinine 0.60 mg/dl (0.6-1.2) 09/19/22 06:16 Est Cr Clr Drug Dosing 75.1 ml/min 09/19/22 06:16 Est GFR ( Amer) 95.7 ml/min 09/19/22 06:16 Est GFR (Non-Af Amer) 82.5 ml/min 09/19/22 06:16 BUN/Creatinine Ratio 20.0 (10-20) 09/19/22 06:16 Glucose 115 mg/dl (70-99(Fasting)) H 09/19/22 06:16 Calcium 8.8 mg/dl (8.5-10.1) 09/19/22 06:16 Phosphorus 3.0 mg/dl (2.5-4.9) 09/18/22 07:33 Magnesium 2.1 mg/dl (1.7-2.4) 09/18/22 07:33 Total Bilirubin 0.8 mg/dl (0.2-1.0) 09/13/22 18:57 AST 15 U/L (13-39) 09/13/22 18:57 ALT 21 U/L (7-52) 09/13/22 18:57 Alkaline Phosphatase 97 U/L (34-104) 09/13/22 18:57 Troponin I High Sens 21.2 pg/ml (0-14) H 09/14/22 11:25 Total Protein 6.6 gm/dl (6.0-8.3) 09/13/22 18:57 Albumin 3.0 gm/dl (3.4-5.0) L 09/13/22 18:57 Globulin 3.6 gm/dl (2.5-4.0) 09/13/22 18:57 Albumin/Globulin Ratio 0.8 (0.9-2) L 09/13/22 18:57 Procalcitonin 5.24 ng/ml (0-0.5) H 09/13/22 18:57 Urine Color Dark Yellow 09/13/22 21:31 Urine Appearance Cloudy (Clear) A 09/13/22 21:31 Urine pH 5.5 (4.5-7.5) 09/13/22 21:31 Ur Specific [place] 1.027 (1.000-1.030) 09/13/22 21:31 Urine Protein 2+ (Negative) H 09/13/22 21:31 Urine Glucose (UA) Negative (Negative) 09/13/22 21: Urine Ketones Trace (Negative) H 09/13/22 21:31 Urine Blood Negative (Negative) 09/13/22 21: Urine Nitrite Negative (Negative) 09/13/22 21: Urine Bilirubin Negative (Negative) 09/13/22 21:31 Urine Urobilinogen Negative (Negative) 09/13/22 21:31 Ur Leukocyte Esterase Trace (Negative) H 09/13/22 21:31 Urine WBC (Auto) 1-5 /hpf (0-5) 09/13/22 21:31 Urine RBC (Auto) 0-4 /hpf (0-4) 09/13/22 21:31 U Hyaline Cast (Auto) 5-10 /lpf (0-5) H 09/13/22 21:31 U Epithel Cells (Auto) 20-30 /lpf (0-5) H 09/13/22 21:31 Urine Bacteria (Auto) Negative (Negative) 09/13/22 21:31 Urine Yeast Not Reportable 09/13/22 21:31 Nasal Screen MRSA (PCR) Cancelled 09/14/22 16:00 SARS-CoV-2 (PCR) NEGATIVE (Negative) 09/13/22 22:36 Influenza Type A (PCR) Negative (Neg) 09/13/22 22:36 Influenza Type B (PCR) Negative (Neg) 09/13/22 22:36 RSV (RT-PCR) Negative (Neg) 09/13/22 22:36 SARS-CoV-2, RNA, NAAT NEGATIVE (NEGATIVE) 09/13/22 22:26 Streptococcus sp PCR DETECTED (NotDetected) A 09/13/22 18:57 Strep pneumoniae (PCR) DETECTED (NotDetected) A 09/13/22 18:57 Bld Cult ID Panel PCR See PCR Comment (NotDetected) 09/13/22 18:57 Impressions Chest X-Ray 09/13/22 18:35 XR chest 1V portable HISTORY: 87 years-old Female Dyspnea acute shortness of breath COMPARISON: None TECHNIQUE: AP view of the chest FINDINGS: Cardiac silhouette is enlarged. Pulmonary vascular congestion. Perihilar, left basilar and left midlung airspace opacities. No pneumothorax identified. Probable small left pleural effusion. Degenerative changes of the shoulders and spine with surgical clips of the left axilla. IMPRESSION: 1. Cardiomegaly with pulmonary vascular congestion. 2. Left midlung and left basilar predominant airspace opacities with small left pleural effusion. Correlate clinically to exclude pneumonia. ACT 112: Negative or not required by law. The above report was generated using voice recognition software. It may contain grammatical, syntax or spelling errors. Electronically signed by: Elton Bishop M.D. 09/13/2022 7:38 PM Chest CTA 09/14/22 07:27 CT ANGIOGRAM OF THE CHEST CLINICAL HISTORY: Cough and dyspnea. COMPARISON STUDY: Chest x-ray dated 09/13/2020 2P TECHNIQUE: Following the IV administration of 120 cc of Optiray 320, CT angiogram of the chest was performed from the upper abdomen to the thoracic inl et utilizing the pulmonary embolus protocol. Images are reviewed in the axial, sagittal, and coronal planes. 3-D MIPS images are created and assessed. IV contrast was administered without complication. A dose lowering technique was utilized adhering to the principles of ALARA. The examination is significantly degraded by motion artifact, as well as by streak artifact from the arms which could not be elevated above the chest. CT DOSE: 484.84 mGy.cm FINDINGS: Thyroid: Mildly enlarged and heterogeneous. Thoracic aorta: There is atherosclerotic calcification of the thoracic aorta, which is normal in caliber and demonstrates standard 3-vessel arch anatomy. No dissection is seen. Pulmonary vasculature: The pulmonary trunk is normal in caliber. There are no filling defects identified in main, lobar, or proximal segmental pulmonary branches to suggest pulmonary embolus. Evaluation of the segmental and subsegmental branches is degraded by motion artifact. Heart: The heart is enlarged and without pericardial effusion. The coronary arteries are densely calcified. Lungs and pleural spaces: There is dense dependent airspace consolidation seen throughout both lungs, left greater than right. Moderate patchy consolidation is seen in the upper lobes. There are trace pleural effusions. The trachea and central airways are patent. Mediastinum: There is no mediastinal lymphadenopathy. Lucia: The lucia are obscured by adjacent consolidation. Axillae: Surgical clips are noted in the left axilla. There is no axillary lymphadenopathy. Upper abdomen: There is a moderate to large hiatal hernia. Partially visualized upper abdominal viscera is otherwise grossly unremarkable. Skeletal structures: The skeletal structures are osteopenic. Advanced degenerative change and hyperkyphosis is noted throughout the thoracic spine. Advanced arthritic change is seen in the shoulders. No lytic or blastic bony lesions are seen. Soft tissues: Postsurgical change is noted in the left breast. IMPRESSION: 1. Streak and motion compromised examination. 2. There is no evidence of central pulmonary embolus in the main, lobar, or proximal segmental pulmonary arteries. Evaluation of the segmental and subsegmental branches is compromised by motion artifact. 3. Extensive bilateral airspace consolidation is typical for pneumonia/aspiration pneumonitis. Clinical correlation will be required and radiographic follow-up to resolution is recommended. 4. Trace pleural effusions. 5. Cardiomegaly. 6. Moderate to large hiatal hernia. 7. Additional findings as above. ACT 112: Negative or not required by law. Electronically signed by: Issac Shipman M.D. 09/14/2022 10:01 AM
[2022-09-19] MEDS: DOXYCYCLINE HYCLATE 100 MG in DEXTROSE 5% 100 ML IV SCH ×2 (11:13→22:29)
--- NOTE | 2022-09-19 11:29 | XRay Report ---
SINGLE VIEW CHEST CLINICAL HISTORY: Follow-up pneumonia. FINDINGS: An AP, portable, upright chest radiograph is compared to study dated 09/13/2022 and correla prabhu with chest CT dated 09/14/2022. The heart is enlarged noting atherosclerotic calcification of the thoracic aorta. There is prominence of the tony hepatis which are. Airspace consolidation is seen t hroughout both lungs, left greater than right with small pleural effusions. No pneumothorax is seen. The skeletal structures are osteopenic. The bony thorax is grossly intact. Arthritic change is seen i n the shoulders. Surgical clips are noted in the left chest wall. IMPRESSION: 1. Cardiomegaly with prominence of the pulmonary vasculature. Correlate clinically for evidence of fl uid overload/congestive change. 2. Bilateral airspace consolidation, left greater than right. This is similar to previous. 3. Suspect small pleural effusions. ACT 112: Negative or not required by law. Electronically signed by: Issac Shipman M.D. 09/19/2022 11:28 AM
[2022-09-19] MEDS: cefTRIAXone SODIUM 2,000 MG in DEXTROSE 5% 50 ML IV SCH (20:48)
[2022-09-19] MEDS: MELATONIN 3 MG TAB PO SCH (20:55)
[2022-09-19] MEDS: traZODone HCL 50 MG TAB PO SCH (20:55)
[2022-09-20] MEDS: HEPARIN SOD 5,000 UNIT/0.5 ML VIAL SQ SCH ×3 (05:47→22:21)
[2022-09-20] MEDS: LEVOTHYROXINE SODIUM 100 MCG TABLET PO SCH (06:13)
[2022-09-20] MEDS: ALBUT/IPRATROP 3MG/0.5MG NEB 3 ML VIAL NEB SCH ×2 (06:58→19:27)
[2022-09-20 07:50] LABS: BUN Creatinine Ratio 27.6 (10-20); Calcium 8.6 mg/dl (8.5-10.1); Creatinine Clr Calc Pharmacy 77.6 ml/min; Est GFR (African American) 96.7 ml/min; Est GFR (Non-African American) 83.5 ml/min; Potassium 3.8 mmol/L (3.5-5.1)
[2022-09-20] MEDS ORDERED: FUROSEMIDE INJ 20 MG/2 ML VIAL IV ONE (10:11)
[2022-09-20] MEDS: DULoxetine HCL 60 MG CAP PO SCH (10:39)
[2022-09-20] MEDS: LOSARTAN POTASSIUM 50 MG TAB PO SCH (10:40)
[2022-09-20] MEDS: PANTOprazole 40 MG TAB PO SCH (10:40)
[2022-09-20] MEDS: FERROUS SULFATE 325 MG TAB PO SCH (10:40)
[2022-09-20] MEDS: OLANZAPINE 2.5 MG TAB PO SCH ×2 (10:40→20:00)
--- NOTE | 2022-09-20 11:30 | Hospitalist Progress Note ---
Date of Service September 20, 2022 Assessment & Plan (1) Sepsis: (2) Streptococcal bacteremia: (3) Pneumonia: Plan: Present on admission with SOB with hypoxia and confusion Recent history of respiratory syncytial virus infection in SNF Met sepsis criteria with leukocytosis, febrile, tachycradia with positive blood pressure CTA chest showed extensive bilateral airspace consolidation is typical for pneumonia/aspiration pneumonitis CXR showed cardiomegaly with pulmonary vascular congestion. Left midlung and left basilar predominant airspace opacities with small left pleural effusion. Blood culture on admission positive for Streptococcus pneumonia Repeat blood culture no growth so far Plan; -Continue on ceftriaxone for now. Plan to provide 10 days of antibiotics from the day culture was negative (till 09/23/2022). Wean oxygen down to maintain saturation over 90%. Plan to transition to oral antibiotic( liquid Augmentin) on discharge. -Will give 1 dose of Lasix 20 mg today given the recent chest finding with pulmonary edema. -Continue DuoNebs twice daily. -Aspiration precautions (4) Hypernatremia: Plan: resolved. Encourage oral hydration (5) Hypokalemia: Plan: Potassium 3.8 today Continue monitor BMP Hypomagnesemia Continue monitor Plan Chronic conditions: History of breast cancer and endometrial cancer, status post surgery. History of hypertension. Losartan with holding parameters. Depression on duloxetine, when able to take po History of hypothyroidism, on Synthroid. History of dementia, Alzheimer's dementia, severe, not able to recognize family members, oriented to name only. Continue to monitor for delirium. Continue Zyprexa home medications. Ambulatory dysfunction. The patient remained only wheelchair bound and needs assistance to get into the wheelchair. Deep venous thrombosis prophylaxis: on heparin subcutaneous. PT OT ordered DVT ppx Disposition-discussed with patient son at bedside on 09/19/2022. He wants his mother to be comfortable as possible. We discussed about hospice care initiation after discharge. He is in agreement with the plan. He had experience with hospice care with his father in the past. Discussed with case operator; will get in touch with the son and initiate the process. Plan to discharge to rehab under hospice care. Admission and Anticipated Discharge Date Admission Date: September 13, 2022 Subjective Patient seen and examined at bedside. She is sitting up on the bed; not in distress. Is currently at 2 L of oxygen by nasal cannula. Review of Systems Review of Systems: Unobtainable due to cognitive status Physical Exam Physical Exam: Constitutional: Awake, not in any distress. Respiratory: Bilateral coarse crackle heard; more on left side. slightly improved. Cardiovascular: RRR, no murmur, no edema Vessels: no JVD or carotid bruit Chest: normal inspection of chest Abdomen: normal bowel sounds, soft, nontender, no hepatosplenomegaly Musculoskeletal: no cyanosis or clubbing, extremities motor strength 5/5 Skin: no rashes, warm and dry normal turgor Neurologic: Occasional follow commands. Results & Data Results & Data ([facility]) Vital Signs (Past 12 Hours) Vital Signs Temp Pulse Pulse Resp BP Pulse Ox O2 Del Method 09/20/22 11:29 36.9 C 70 18 174/75 H 94 Nasal Cannula 09/20/22 08:00 69 09/20/22 07:29 36.9 C 73 20 133/68 91 Nasal Cannula 09/20/22 07:02 79 18 92 Nasal Cannula 09/20/22 03:49 36.9 C 70 18 125/68 92 Nasal Cannula O2 Flow Rate 09/20/22 11:29 2 09/20/22 08:00 09/20/22 07:29 3 09/20/22 07:02 3 09/20/22 03:49 2 Laboratory Results Laboratory Results WBC 11.57 K/ul (4.8-10.8) H 09/19/22 06:16 RBC 3.58 M/uL (3.93-5.22) L 09/19/22 06:16 Hgb 10.8 g/dl (12.0-16.0) L 09/19/22 06:16 Hct 31.7 % (34.1-44.9) L 09/19/22 06:16 MCV 88.5 fL (80.0-100.0) 09/19/22 06:16 MCH 30.2 pg (25.0-34.0) 09/19/22 06:16 MCHC 34.1 g/dL (32.0-36.0) 09/19/22 06:16 RDW Std Deviation 51.8 fL (36.4-46.3) H 09/19/22 06:16 RDW Coeff of Tanesha 16.0 % (11.5-14.5) H 09/19/22 06:16 Plt Count 364 K/uL (130-400) 09/19/22 06:16 MPV 10.6 fL (9.4-12.3) 09/19/22 06:16 Immature Gran % (Auto) 5.1 % 09/19/22 06:16 Neut % (Auto) 73.6 % 09/19/22 06:16 Lymph % (Auto) 14.3 % 09/19/22 06:16 Graves % (Auto) 5.0 % 09/19/22 06:16 Eos % (Auto) 1.6 % 09/19/22 06:16 Baso % (Auto) 0.4 % 09/19/22 06:16 Neut # (Auto) 8.52 K/uL (1.4-6.5) H 09/19/22 06:16 Lymph # (Auto) 1.65 K/uL (1.2-3.4) 09/19/22 06:16 Graves # (Auto) 0.58 K/uL (0.24-0.82) 09/19/22 06:16 Eos # (Auto) 0.18 K/uL (0-0.50) 09/19/22 06:16 Baso # (Auto) 0.05 K/uL (0-0.2) 09/19/22 06:16 Immature Gran # (Auto) 0.59 K/uL (0.00-0.02) H 09/19/22 06:16 Absolute Nucleated RBC 0.02 K/uL (0-0) H 09/19/22 06:16 Nucleated RBC % (auto) 0.2 % 09/19/22 06:16 Neutrophils % (Manual) 84 % 09/14/22 05:00 Lymphocytes % (Manual) 10 % 09/14/22 05:00 Monocytes % (Manual) 6 % 09/14/22 05:00 Neutrophils # (Manual) 11.78 K/uL (1.4-6.5) H 09/14/22 05:00 Lymphocytes # (Manual) 1.40 K/uL (1.2-3.4) 09/14/22 05:00 Monocytes # (Manual) 0.84 K/uL (0.24-0.82) H 09/14/22 05:00 Toxic Granulation 1+ 09/15/22 07:47 Toxic Vacuolation 1+ 09/15/22 07:47 Dohle Bodies 1+ 09/13/22 18:57 Polychromasia 1+ 09/19/22 06:16 Target Cells 1+ 09/15/22 07:47 Echinocytes 1+ 09/19/22 06:16 Acanthocytes (Spur) 1+ 09/13/22 18:57 ABG pH 7.48 (7.35-7.45) H 09/13/22 18:58 ABG pCO2 32 mmHg (35-46) L 09/13/22 18:58 ABG pO2 69 mmHg (80-95) L 09/13/22 18:58 ABG HCO3 24 mmol/L (19-24) 09/13/22 18:58 ABG O2 Saturation 95.3 % (90-95) H 09/13/22 18:58 ABG Base Excess 0.9 mEq/L (-9-1.8) 09/13/22 18:58 Yair Test POS (Pos) 09/13/22 18:58 Oxygen Given 15 L 09/13/22 18:58 Sodium 137 mmol/L (136-145) 09/20/22 06:37 Potassium 3.8 mmol/L (3.5-5.1) 09/20/22 06:37 Chloride 108 mmol/L (98-107) H 09/20/22 06:37 Carbon Dioxide 23 mmol/L (21-32) 09/20/22 06:37 Anion Gap 6 (3-11) 09/20/22 06:37 BUN 16 mg/dl (6-23) 09/20/22 06:37 Creatinine 0.58 mg/dl (0.6-1.2) L 09/20/22 06:37 Est Cr Clr Drug Dosing 77.6 ml/min 09/20/22 06:37 Est GFR ( Amer) 96.7 ml/min 09/20/22 06:37 Est GFR (Non-Af Amer) 83.5 ml/min 09/20/22 06:37 BUN/Creatinine Ratio 27.6 (10-20) H 09/20/22 06:37 Glucose 107 mg/dl (70-99(Fasting)) H 09/20/22 06:37 Calcium 8.6 mg/dl (8.5-10.1) 09/20/22 06:37 Phosphorus 3.0 mg/dl (2.5-4.9) 09/18/22 07:33 Magnesium 2.1 mg/dl (1.7-2.4) 09/18/22 07:33 Total Bilirubin 0.8 mg/dl (0.2-1.0) 09/13/22 18:57 AST 15 U/L (13-39) 09/13/22 18:57 ALT 21 U/L (7-52) 09/13/22 18:57 Alkaline Phosphatase 97 U/L (34-104) 09/13/22 18:57 Troponin I High Sens 21.2 pg/ml (0-14) H 09/14/22 11:25 Total Protein 6.6 gm/dl (6.0-8.3) 09/13/22 18:57 Albumin 3.0 gm/dl (3.4-5.0) L 09/13/22 18:57 Globulin 3.6 gm/dl (2.5-4.0) 09/13/22 18:57 Albumin/Globulin Ratio 0.8 (0.9-2) L 09/13/22 18:57 Procalcitonin 5.24 ng/ml (0-0.5) H 09/13/22 18:57 Urine Color Dark Yellow 09/13/22 21: Urine Appearance Cloudy (Clear) A 09/13/22 21:31 Urine pH 5.5 (4.5-7.5) 09/13/22 21:31 Ur Specific [place] 1.027 (1.000-1.030) 09/13/22 21:31 Urine Protein 2+ (Negative) H 09/13/22 21:31 Urine Glucose (UA) Negative (Negative) 09/13/22 21: Urine Ketones Trace (Negative) H 09/13/22 21: Urine Blood Negative (Negative) 09/13/22 21: Urine Nitrite Negative (Negative) 09/13/22 21: Urine Bilirubin Negative (Negative) 09/13/22 21:31 Urine Urobilinogen Negative (Negative) 09/13/22 21:31 Ur Leukocyte Esterase Trace (Negative) H 09/13/22 21:31 Urine WBC (Auto) 1-5 /hpf (0-5) 09/13/22 21:31 Urine RBC (Auto) 0-4 /hpf (0-4) 09/13/22 21:31 U Hyaline Cast (Auto) 5-10 /lpf (0-5) H 09/13/22 21:31 U Epithel Cells (Auto) 20-30 /lpf (0-5) H 09/13/22 21:31 Urine Bacteria (Auto) Negative (Negative) 09/13/22 21:31 Urine Yeast Not Reportable 09/13/22 21:31 Nasal Screen MRSA (PCR) Cancelled 09/14/22 16:00 SARS-CoV-2 (PCR) NEGATIVE (Negative) 09/13/22 22:36 Influenza Type A (PCR) Negative (Neg) 09/13/22 22:36 Influenza Type B (PCR) Negative (Neg) 09/13/22 22:36 RSV (RT-PCR) Negative (Neg) 09/13/22 22:36 SARS-CoV-2, RNA, NAAT NEGATIVE (NEGATIVE) 09/13/22 22:26 Streptococcus sp PCR DETECTED (NotDetected) A 09/13/22 18:57 Strep pneumoniae (PCR) DETECTED (NotDetected) A 09/13/22 18:57 Bld Cult ID Panel PCR See PCR Comment (NotDetected) 09/13/22 18:57 Impressions Chest CTA 09/14/22 07:27 CT ANGIOGRAM OF THE CHEST CLINICAL HISTORY: Cough and dyspnea. COMPARISON STUDY: Chest x-ray dated 09/13/2020 2P TECHNIQUE: Following the IV administration of 120 cc of Optiray 320, CT angiogram of the chest was performed from the upper abdomen to the thoracic inlet utilizing the pulmonary embolus protocol. Images are reviewed in the axial, sagittal, and coronal planes. 3-D MIPS images are created and assessed. IV contrast was administered without complication. A dose lowering technique was utilized adhering to the principles of ALARA. The examination is significantly degraded by motion artifact, as well as by streak artifact from the arms which could not be elevated above the chest. CT DOSE: 484.84 mGy.cm FINDINGS: Thyroid: Mildly enlarged and heterogeneous. Thoracic aorta: There is atherosclerotic calcification of the thoracic aorta, which is normal in caliber and demonstrates standard 3-vessel arch anatomy. No dissection is seen. Pulmonary vasculature: The pulmonary trunk is normal in caliber. There are no filling defects identified in main, lobar, or proximal segmental pulmonary branches to suggest pulmonary embolus. Evaluation of the segmental and subsegmental branches is degraded by motion artifact. Heart: The heart is enlarged and without pericardial effusion. The coronary art eries are densely calcified. Lungs and pleural spaces: There is dense dependent airspace consolidation seen throughout both lungs, left greater than right. Moderate patchy consolidation is seen in the upper lobes. There are trace pleural effusions. The trachea and central airways are patent. Mediastinum: There is no mediastinal lymphadenopathy. Lucia: The lucia are obscured by adjacent consolidation. Axillae: Surgical clips are noted in the left axilla. There is no axillary lymphadenopathy. Upper abdomen: There is a moderate to large hiatal hernia. Partially visualized upper abdominal viscera is otherwise grossly unremarkable. Skeletal structures: The skeletal structures are osteopenic. Advanced degenerative change and hyperkyphosis is noted throughout the thoracic spine. Advanced arthritic change is seen in the shoulders. No lytic or blastic bony lesions are seen. Soft tissues: Postsurgical change is noted in the left breast. IMPRESSION: 1. Streak and motion compromised examination. 2. There is no evidence of central pulmonary embolus in the main, lobar, or proximal segmental pulmonary arteries. Evaluation of the segmental and subsegmental branches is compromised by motion artifact. 3. Extensive bilateral airspace consolidation is typical for pneumonia/aspiration pneumonitis. Clinical correlation will be required and radiographic follow-up to resolution is recommended. 4. Trace pleural effusions. 5. Cardiomegaly. 6. Moderate to large hiatal hernia. 7. Additional findings as above. ACT 112: Negative or not required by law. Electronically signed by: Issac Shipman M.D. 09/14/2022 10:01 AM Chest X-Ray 09/19/22 11:05 SINGLE VIEW CHEST CLINICAL HISTORY: Follow-up pneumonia. FINDINGS: An AP, portable, upright chest radiograph is compared to study dated 09/13/2022 and correlated with chest CT dated 09/14/2022. The heart is enlarged noting atherosclerotic calcification of the thoracic aorta. There is prominence of the tony hepatis which are. Airspace consolidation is seen throughout both lungs, left greater than right with small pleural effusions. No pneumothorax is seen. The skeletal structures are osteopenic. The bony thorax is grossly intact. Arthritic change is seen in the shoulders. Surgical clips are noted in the left chest wall. IMPRESSION: 1. Cardiomegaly with prominence of the pulmonary vasculature. Correlate clinically for evidence of fluid overload/congestive change. 2. Bilateral airspace consolidation, left greater than right. This is similar to previous. 3. Suspect small pleural effusions. ACT 112: Negative or not required by law. Electronically signed by: Issac Shipman M.D. 09/19/2022 11:28 AM
[2022-09-20] MEDS: DOXYCYCLINE HYCLATE 100 MG in DEXTROSE 5% 100 ML IV SCH ×2 (12:51→23:18)
[2022-09-20] MEDS: traZODone HCL 50 MG TAB PO SCH (20:00)
[2022-09-20] MEDS: cefTRIAXone SODIUM 2,000 MG in DEXTROSE 5% 50 ML IV SCH (20:00)
[2022-09-20] MEDS: MELATONIN 3 MG TAB PO SCH (20:47)
[2022-09-21] MEDS: HEPARIN SOD 5,000 UNIT/0.5 ML VIAL SQ SCH ×3 (05:36→22:03)
[2022-09-21] MEDS: LEVOTHYROXINE SODIUM 100 MCG TABLET PO SCH (05:37)
[2022-09-21] MEDS: ALBUT/IPRATROP 3MG/0.5MG NEB 3 ML VIAL NEB SCH ×2 (06:58→19:26)
[2022-09-21 07:16] LABS: BUN Creatinine Ratio 28.1 (10-20); Calcium 8.7 mg/dl (8.5-10.1); Creatinine Clr Calc Pharmacy 78.3 ml/min; Est GFR (African American) 97.3 ml/min; Est GFR (Non-African American) 83.9 ml/min; Potassium 3.6 mmol/L (3.5-5.1)
[2022-09-21] MEDS: DULoxetine HCL 60 MG CAP PO SCH (13:28)
[2022-09-21] MEDS: FERROUS SULFATE 325 MG TAB PO SCH (13:28)
[2022-09-21] MEDS: PANTOprazole 40 MG TAB PO SCH (13:29)
[2022-09-21] MEDS: OLANZAPINE 2.5 MG TAB PO SCH ×2 (13:29→20:02)
[2022-09-21] MEDS: LOSARTAN POTASSIUM 50 MG TAB PO SCH (13:29)
--- NOTE | 2022-09-21 18:14 | Hospitalist Progress Note ---
Date of Service September 21, 2022 Assessment & Plan (1) Sepsis: (2) Streptococcal bacteremia: (3) Pneumonia: Plan: Present on admission with SOB with hypoxia and confusion Recent history of respiratory syncytial virus infection in SNF Met sepsis criteria with leukocytosis, febrile, tachycradia with positive blood pressure CTA chest showed extensive bilateral airspace consolidation is typical for pneumonia/aspiration pneumonitis CXR showed cardiomegaly with pulmonary vascular congestion. Left midlung and left basilar predominant airspace opacities with small left pleural effusion. Blood culture on admission positive for Streptococcus pneumonia Repeat blood culture no growth so far Plan; -Continue on ceftriaxone for now. Plan to provide 10 days of antibiotics from the day culture was negative (till 09/23/2022). Wean oxygen down to maintain saturation over 90%. Plan to transition to oral antibiotic( liquid Augmentin) on discharge. -Will repeat additional Lasix 20 mg today -Continue DuoNebs twice daily. -Aspiration precautions (4) Hypernatremia: Plan: resolved. Encourage oral hydration (5) Hypokalemia: Plan: Potassium 3.6 today Continue monitor BMP Hypomagnesemia Continue monitor Plan Chronic conditions: History of breast cancer and endometrial cancer, status post surgery. History of hypertension. Losartan with holding parameters. Depression on duloxetine, when able to take po History of hypothyroidism, on Synthroid. History of dementia, Alzheimer's dementia, severe, not able to recognize family members, oriented to name only. Continue to monitor for delirium. Continue Zyprexa home medications. Ambulatory dysfunction. The patient remained only wheelchair bound and needs assistance to get into the wheelchair. Deep venous thrombosis prophylaxis: on heparin subcutaneous. PT OT ordered DVT ppx Disposition Continue medical intervention with antibiotic and supportive care for now. Plan to discharge to the facility on hospice Admission and Anticipated Discharge Date Admission Date: September 13, 2022 Subjective Patient seen and examined at bedside for follow Lying in bed with no acute distress Pt has been sleepy today Nurse said that she was able to wake up when she helps her to seat in the chair No arrhythmia noted on tele monitor Review of Systems Review of Systems: All systems reviewed & are unremarkable except as noted in Subjective Physical Exam Physical Exam: Constitutional: no acute distress Respiratory: poor air Cardiovascular: RRR, no murmur, no edema Vessels: no JVD or carotid bruit Chest: normal inspection of chest Abdomen: normal bowel sounds, soft, nontender, no hepatosplenomegaly Musculoskeletal: no cyanosis or clubbing Skin: no rashes, warm and dry normal turgor Neurologic: awake, move all 4 extremities, spoke few words with son Results & Data Results & Data ([facility]) Vital Signs (Past 12 Hours) Vital Signs Temp Pulse Pulse Resp BP Pulse Ox O2 Del Method 09/21/22 16:42 37 C 75 18 146/70 H 94 Nasal Cannula 09/21/22 15:16 72 09/21/22 11:23 37.1 C 71 20 141/57 H 90 Nasal Cannula 09/21/22 07:41 Nasal Cannula 09/21/22 07:40 72 09/21/22 07:02 37.0 C 63 18 126/49 L 93 Nasal Cannula 09/21/22 06:58 58 L 20 93 Nasal Cannula O2 Flow Rate 09/21/22 16:42 3 09/21/22 15:16 09/21/22 11:23 3 09/21/22 07:41 2 09/21/22 07:40 09/21/22 07:02 2 09/21/22 06:58 3
[2022-09-21] MEDS ORDERED: POTASSIUM CHLORIDE CRTAB 20 MEQ TABCR PO STA (18:15)
[2022-09-21] MEDS ORDERED: FUROSEMIDE INJ 20 MG/2 ML VIAL IV ONE (18:15)
[2022-09-21] MEDS: cefTRIAXone SODIUM 2,000 MG in DEXTROSE 5% 50 ML IV SCH (19:57)
[2022-09-21] MEDS: traZODone HCL 50 MG TAB PO SCH (20:02)
[2022-09-21] MEDS: MELATONIN 3 MG TAB PO SCH (22:03)
[2022-09-22] MEDS: HEPARIN SOD 5,000 UNIT/0.5 ML VIAL SQ SCH ×3 (06:27→22:18)
[2022-09-22] MEDS: LEVOTHYROXINE SODIUM 100 MCG TABLET PO SCH (06:27)
[2022-09-22] MEDS: ALBUT/IPRATROP 3MG/0.5MG NEB 3 ML VIAL NEB SCH ×2 (07:10→19:10)
[2022-09-22 08:58] LABS: BUN Creatinine Ratio 28.6 (10-20); Calcium 9.2 mg/dl (8.5-10.1); Creatinine Clr Calc Pharmacy 70.8 ml/min; Est GFR (African American) 94.1 ml/min; Est GFR (Non-African American) 81.2 ml/min
[2022-09-22] MEDS: PANTOprazole 40 MG TAB PO SCH (10:25)
[2022-09-22] MEDS: FERROUS SULFATE 325 MG TAB PO SCH (10:25)
[2022-09-22] MEDS: LOSARTAN POTASSIUM 50 MG TAB PO SCH (10:25)
[2022-09-22] MEDS: DULoxetine HCL 60 MG CAP PO SCH (10:25)
[2022-09-22] MEDS: OLANZAPINE 2.5 MG TAB PO SCH ×2 (10:25→22:12)
[2022-09-22] MEDS: cefTRIAXone SODIUM 2,000 MG in DEXTROSE 5% 50 ML IV SCH (19:50)
[2022-09-22] MEDS: MELATONIN 3 MG TAB PO SCH (22:11)
[2022-09-22] MEDS: traZODone HCL 50 MG TAB PO SCH (22:12)
--- NOTE | 2022-09-22 22:37 | Hospitalist Progress Note ---
Date of Service September 22, 2022 Assessment & Plan (1) Sepsis: (2) Streptococcal bacteremia: (3) Pneumonia: Plan: Present on admission with SOB with hypoxia and confusion Recent history of respiratory syncytial virus infection in SNF Met sepsis criteria with leukocytosis, febrile, tachycradia with positive blood pressure CTA chest showed extensive bilateral airspace consolidation is typical for pneumonia/aspiration pneumonitis CXR showed cardiomegaly with pulmonary vascular congestion. Left midlung and left basilar predominant airspace opacities with small left pleural effusion. Blood culture on admission positive for Streptococcus pneumonia Repeat blood culture no growth so far Currently on ceftriaxone for now. Plan to provide 10 days of antibiotics from the day culture was negative (till 09/23/2022). Wean oxygen down to maintain saturation over 90%. Continue DuoNebs twice daily. Aspiration precautions Will consult palliative care for goal of care (4) Hypernatremia: Plan: resolved. Encourage oral hydration (5) Hypokalemia: Plan: Potassium 4 today Continue monitor BMP Hypomagnesemia Continue monitor Plan Chronic conditions: History of breast cancer and endometrial cancer, status post surgery. History of hypertension. Losartan with holding parameters. Depression on duloxetine, when able to take po History of hypothyroidism, on Synthroid. History of dementia, Alzheimer's dementia, severe, not able to recognize family members, oriented to name only. Continue to monitor for delirium. Continue Zyprexa home medications. Ambulatory dysfunction. The patient remained only wheelchair bound and needs assistance to get into the wheelchair. Deep venous thrombosis prophylaxis: on heparin subcutaneous. PT OT ordered DVT ppx Disposition Plan to discharge to the facility on hospice Palliative care consult Admission and Anticipated Discharge Date Admission Date: September 13, 2022 Subjective Patient was seen and examined at bedside for follow Lying in bed with no acute distress She is slightly awake today with eyes opened, but did not communicate much No arrhythmia noted on tele monitor Review of Systems Review of Systems: All systems reviewed & are unremarkable except as noted in Subjective Physical Exam Physical Exam: Constitutional: no acute distress Respiratory: poor air Cardiovascular: RRR, no murmur, no edema Vessels: no JVD or carotid bruit Chest: normal inspection of chest Abdomen: normal bowel sounds, soft, nontender, no hepatosplenomegaly Musculoskeletal: no cyanosis or clubbing Skin: no rashes, warm and dry normal turgor Neurologic: awake, move all 4 extremities, spoke few words with son Results & Data Results & Data ([facility]) Vital Signs (Past 12 Hours) Vital Signs Temp Pulse Pulse Resp BP Pulse Ox O2 Del Method 09/22/22 19:17 37.1 C 96 H 16 131/82 92 Nasal Cannula 09/22/22 19:11 96 H 22 92 Nasal Cannula 09/22/22 18:00 92 H 09/22/22 15:18 37.0 C 92 H 18 143/64 H 90 Nasal Cannula 09/22/22 11:38 37.1 C 79 19 114/84 93 Nasal Cannula O2 Flow Rate 09/22/22 19:17 09/22/22 19:11 3 09/22/22 18:00 09/22/22 15:18 3 09/22/22 11:38 3
[2022-09-23] MEDS: LEVOTHYROXINE SODIUM 100 MCG TABLET PO SCH (05:33)
[2022-09-23] MEDS: HEPARIN SOD 5,000 UNIT/0.5 ML VIAL SQ SCH ×2 (05:44→15:59)
[2022-09-23] MEDS: ALBUT/IPRATROP 3MG/0.5MG NEB 3 ML VIAL NEB SCH (07:06)
--- NOTE | 2022-09-23 10:23 | Hospitalist Progress Note ---
Date of Service September 23, 2022 Assessment & Plan (1) Sepsis: (2) Streptococcal bacteremia: (3) Pneumonia: Plan: Present on admission with SOB with hypoxia and confusion Recent history of respiratory syncytial virus infection in SNF Met sepsis criteria with leukocytosis, febrile, tachycradia with positive blood pressure CTA chest showed extensive bilateral airspace consolidation is typical for pneumonia/aspiration pneumonitis CXR showed cardiomegaly with pulmonary vascular congestion. Left midlung and left basilar predominant airspace opacities with small left pleural effusion. Blood culture on admission positive for Streptococcus pneumonia Repeat blood culture no growth so far Currently on ceftriaxone for now. will complete 10 days of antibiotics from the day culture was negative (till 09/23/2022). Continue oxygen supplement to maintain saturation over 90%. Continue DuoNebs twice daily. Will give lasix 20mg x1 today Aspiration precautions Plan to transition to Hospice upon discharge to [facility] today (4) Hypernatremia: Plan: resolved. Encourage oral hydration (5) Hypokalemia: Plan: Potassium 4 today Continue monitor BMP Hypomagnesemia Continue monitor Hiatal hernia CTA chest showed moderate to large hiatal hernia. Stable Plan Chronic conditions: History of breast cancer and endometrial cancer, status post surgery. History of hypertension. Losartan with holding parameters. Depression on duloxetine, when able to take po History of hypothyroidism, on Synthroid. History of dementia, Alzheimer's dementia, severe, not able to recognize family members, oriented to name only. Continue to monitor for delirium. Continue Zyprexa home medications. Ambulatory dysfunction. The patient remained only wheelchair bound and needs assistance to get into the wheelchair. Deep venous thrombosis prophylaxis: on heparin subcutaneous. PT OT ordered DVT ppx Disposition Plan to discharge to the facility on hospice Palliative care consult Admission and Anticipated Discharge Date Admission Date: September 13, 2022 Subjective Patient was seen and examined at bedside for follow Lying in bed with no acute distress. She closed her eyes but when I scratched the bottom of her feet, she was able to withdrew her lower extremities and tried to open her eyes I spoke to son Freddie that was concerned about transition to hospice It was concerned about hiatal hernia and cardiomegaly that seen on imaging I explained to him those finding are chronic. I explained to him the Pneumonia does not cause the large Hiatal hernia I explained to him Mrs. Berman received 10 days of IV abx that covered for the pneumonia Son also concerned because [facility] has few case of Covid 19. I told him that i ll let case management know to reach out to [facility] about the COVID 19 situation Son is waiting to speak with the hospice team before patient can discharge to [facility] for hospice Review of Systems Review of Systems: All systems reviewed & are unremarkable except as noted in Subjective Physical Exam Physical Exam: Constitutional: no acute distress, eyes closed Respiratory: poor air Cardiovascular: No murmur +tachycardia Chest: normal inspection of chest Abdomen: normal bowel sounds, soft, nontender, no hepatosplenomegaly Musculoskeletal: no cyanosis or clubbing Skin: no rashes, warm and dry normal turgor Neurologic: eyes closed, move extremities with tactile stimuli Results & Data Results & Data ([facility]) Vital Signs (Past 12 Hours) Vital Signs Temp Pulse Pulse Pulse Resp BP Pulse Ox 09/23/22 08:12 09/23/22 08:06 37.1 C 98 H 20 121/67 90 09/23/22 07:12 98 H 18 90 09/23/22 06:57 95 H 09/23/22 03:27 36.7 C 95 H 22 123/55 L 92 09/23/22 00:00 95 H 09/23/22 00:00 09/22/22 23:01 36.4 C L 98 H 20 126/59 L 93 O2 Del Method O2 Flow Rate 09/23/22 08:12 Nasal Cannula 4 09/23/22 08:06 Nasal Cannula 4 09/23/22 07:12 Nasal Cannula 4 09/23/22 06:57 09/23/22 03:27 Nasal Cannula 09/23/22 00:00 09/23/22 00:00 Nasal Cannula 3 09/22/22 23:01 Nasal Cannula
[2022-09-23] MEDS ORDERED: FUROSEMIDE INJ 20 MG/2 ML VIAL IV ONE (10:34)
[2022-09-23] MEDS: LOSARTAN POTASSIUM 50 MG TAB PO SCH (12:26)
[2022-09-23] MEDS: DULoxetine HCL 60 MG CAP PO SCH (12:26)
[2022-09-23] MEDS: OLANZAPINE 2.5 MG TAB PO SCH (12:26)
[2022-09-23] MEDS: FERROUS SULFATE 325 MG TAB PO SCH (12:26)
[2022-09-23] MEDS: PANTOprazole 40 MG TAB PO SCH (12:26)
[2022-09-23] MEDS ORDERED: MoRPHine SULFATE 5 MG/0.25 ML UDP PO PRN ×2 (13:52→16:15)
[2022-09-23] MEDS ORDERED: LORazepam 0.5 MG TAB SL PRN ×2 (13:59→16:15)
--- NOTE | 2022-10-01 10:05 | Discharge Summary ---
Date of Service September 23, 2022 Admission HPI Per Admitting Provider DATE OF ADMISSION: 09/13/2022. CHIEF COMPLAINT: Shortness of breath, hypoxia. 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 The patient was diagnosed with RSV last week and initially started on 5 liters nasal cannula. As per son in the room, who has given history. She was reportedly doing fine as oxygen was stopped few days later. She is currently wheelchair dependent and she also needs assistance to get into the wheelchair, but she can eat and swallow okay. Yesterday, she went to the dinner table and ate her food, but today again she was having short of breath and son was called around 3-3:30 p.m. when he went there, she was placed on OxyMask . She was lethargic and sleepy. As per son, she was very confused. She knows her name, but she has very bad dementia. She cannot recognize the family members. She does not know where she is. As per son, he does not know of any nausea, vomiting or diarrhea, or of any complaint of any pain, could not get any history from the patient. Son wants her to be comfortable and treat only with antibiotics, fluids and oxygen, but no aggressive measures goal is towards comfort. she is DNR/DNI. Admission Exam Per Admitting Provider GENERAL: The patient is lethargic, . VITAL SIGNS: Temperature 37.5, pulse 93, respiratory rate 30s, blood pressure 159/97, oxygen 94%, 15 liters nonrebreather. HEENT: Head atraumatic. Pupils difficult to open the eyes, but sluggish to react. No obvious facial droop seen. NECK: No neck masses seen. CARDIOVASCULAR: S1 and S2 heard. Tachycardia. No murmurs. RESPIRATORY SYSTEM: Normal AP diameter. No accessory muscle use. No wheezing or crackles. ABDOMEN: Soft, bowel sounds sluggish. No distention. CENTRAL NERVOUS SYSTEM: Lethargic, opens eyes for painful stimuli. EXTREMITIES: Mild pedal edema present, no erythema seen. Principal Diagnosis Sepsis: Streptococcal bacteremia: Pneumonia: Hypernatremia: Hypokalemia: Hypomagnesemia Discharge Exam Constitutional: no acute distress, eyes closed Respiratory: poor air Cardiovascular: No murmur +tachycardia Chest: normal inspection of chest Abdomen: normal bowel sounds, soft, nontender, no hepatosplenomegaly Musculoskeletal: no cyanosis or clubbing Skin: no rashes, warm and dry normal turgor Neurologic: eyes closed, move extremities with tactile stimuli Discharge Data Allergies Allergy/AdvReac Type Severity Reaction Status Date / Time No Known Allergies Allergy Verified 09/13/22 21:53 Consultations 09/13/22 20:40 ED Decision to Admit Stat Ordered Studies 09/14/22 07:27 CT angio chest PE protocol Urgent Laboratory Results WBC 11.57 K/ul (4.8-10.8) H 09/19/22 06:16 RBC 3.58 M/uL (3.93-5.22) L 09/19/22 06:16 Hgb 10.8 g/dl (12.0-16.0) L 09/19/22 06:16 Hct 31.7 % (34.1-44.9) L 09/19/22 06:16 MCV 88.5 fL (80.0-100.0) 09/19/22 06:16 MCH 30.2 pg (25.0-34.0) 09/19/22 06:16 MCHC 34.1 g/dL (32.0-36.0) 09/19/22 06:16 RDW Std Deviation 51.8 fL (36.4-46.3) H 09/19/22 06:16 RDW Coeff of Tanesha 16.0 % (11.5-14.5) H 09/19/22 06:16 Plt Count 364 K/uL (130-400) 09/19/22 06:16 MPV 10.6 fL (9.4-12.3) 09/19/22 06:16 Immature Gran % (Auto) 5.1 % 09/19/22 06:16 Neut % (Auto) 73.6 % 09/19/22 06:16 Lymph % (Auto) 14.3 % 09/19/22 06:16 [place] % (Auto) 5.0 % 09/19/22 06:16 Eos % (Auto) 1.6 % 09/19/22 06:16 Baso % (Auto) 0.4 % 09/19/22 06:16 Neut # (Auto) 8.52 K/uL (1.4-6.5) H 09/19/22 06:16 Lymph # (Auto) 1.65 K/uL (1.2-3.4) 09/19/22 06:16 [place] # (Auto) 0.58 K/uL (0.24-0.82) 09/19/22 06:16 Eos # (Auto) 0.18 K/uL (0-0.50) 09/19/22 06:16 Baso # (Auto) 0.05 K/uL (0-0.2) 09/19/22 06:16 Immature Gran # (Auto) 0.59 K/uL (0.00-0.02) H 09/19/22 06:16 Absolute Nucleated RBC 0.02 K/uL (0-0) H 09/19/22 06:16 Nucleated RBC % (auto) 0.2 % 09/19/22 06:16 Neutrophils % (Manual) 84 % 09/14/22 05:00 Lymphocytes % (Manual) 10 % 09/14/22 05:00 Monocytes % (Manual) 6 % 09/14/22 05:00 Neutrophils # (Manual) 11.78 K/uL (1.4-6.5) H 09/14/22 05:00 Lymphocytes # (Manual) 1.40 K/uL (1.2-3.4) 09/14/22 05:00 Monocytes # (Manual) 0.84 K/uL (0.24-0.82) H 09/14/22 05:00 Toxic Granulation 1+ 09/15/22 07:47 Toxic Vacuolation 1+ 09/15/22 07:47 Dohle Bodies 1+ 09/13/22 18:57 Polychromasia 1+ 09/19/22 06:16 Target Cells 1+ 09/15/22 07:47 Echinocytes 1+ 09/19/22 06:16 Acanthocytes (Spur) 1+ 09/13/22 18:57 ABG pH 7.48 (7.35-7.45) H 09/13/22 18:58 ABG pCO2 32 mmHg (35-46) L 09/13/22 18:58 ABG pO2 69 mmHg (80-95) L 09/13/22 18:58 ABG HCO3 24 mmol/L (19-24) 09/13/22 18:58 ABG O2 Saturation 95.3 % (90-95) H 09/13/22 18:58 ABG Base Excess 0.9 mEq/L (-9-1.8) 09/13/22 18:58 Yair Test POS (Pos) 09/13/22 18:58 Oxygen Given 15 L 09/13/22 18:58 Sodium 137 mmol/L (136-145) 09/22/22 08:06 Potassium 4.0 mmol/L (3.5-5.1) 09/22/22 08:06 Chloride 104 mmol/L (98-107) 09/22/22 08:06 Carbon Dioxide 26 mmol/L (21-32) 09/22/22 08:06 Anion Gap 7 (3-11) 09/22/22 08:06 BUN 18 mg/dl (6-23) 09/22/22 08:06 Creatinine 0.63 mg/dl (0.6-1.2) 09/22/22 08:06 Est Cr Clr Drug Dosing 70.8 ml/min 09/22/22 08:06 Est GFR ( Amer) 94.1 ml/min 09/22/22 08:06 Est GFR (Non-Af Amer) 81.2 ml/min 09/22/22 08:06 BUN/Creatinine Ratio 28.6 (10-20) H 09/22/22 08:06 Glucose 128 mg/dl (70-99(Fasting)) H 09/22/22 08:06 Calcium 9.2 mg/dl (8.5-10.1) 09/22/22 08:06 Phosphorus 3.0 mg/dl (2.5-4.9) 09/18/22 07:33 Magnesium 2.1 mg/dl (1.7-2.4) 09/18/22 07:33 Total Bilirubin 0.8 mg/dl (0.2-1.0) 09/13/22 18:57 AST 15 U/L (13-39) 09/13/22 18:57 ALT 21 U/L (7-52) 09/13/22 18:57 Alkaline Phosphatase 97 U/L (34-104) 09/13/22 18:57 Troponin I High Sens 21.2 pg/ml (0-14) H 09/14/22 11: Total Protein 6.6 gm/dl (6.0-8.3) 09/13/22 18:57 Albumin 3.0 gm/dl (3.4-5.0) L 09/13/22 18:57 Globulin 3.6 gm/dl (2.5-4.0) 09/13/22 18:57 Albumin/Globulin Ratio 0.8 (0.9-2) L 09/13/22 18:57 Procalcitonin 5.24 ng/ml (0-0.5) H 09/13/22 18:57 Urine Color Dark Yellow 09/13/22 21:31 Urine Appearance Cloudy (Clear) A 09/13/22 21:31 Urine pH 5.5 (4.5-7.5) 09/13/22 21:31 Ur Specific [place] 1.027 (1.000-1.030) 09/13/22 21:31 Urine Protein 2+ (Negative) H 09/13/22 21:31 Urine Glucose (UA) Negative (Negative) 09/13/22 21:31 Urine Ketones Trace (Negative) H 09/13/22 21: Urine Blood Negative (Negative) 09/13/22 21: Urine Nitrite Negative (Negative) 09/13/22 21:31 Urine Bilirubin Negative (Negative) 09/13/22 21:31 Urine Urobilinogen Negative (Negative) 09/13/22 21:31 Ur Leukocyte Esterase Trace (Negative) H 09/13/22 21:31 Urine WBC (Auto) 1-5 /hpf (0-5) 09/13/22 21:31 Urine RBC (Auto) 0-4 /hpf (0-4) 09/13/22 21: U Hyaline Cast (Auto) 5-10 /lpf (0-5) H 09/13/22 21:31 U Epithel Cells (Auto) 20-30 /lpf (0-5) H 09/13/22 21:31 Urine Bacteria (Auto) Negative (Negative) 09/13/22 21:31 Urine Yeast Not Reportable 09/13/22 21:31 Nasal Screen MRSA (PCR) Cancelled 09/14/22 16:00 SARS-CoV-2 (PCR) NEGATIVE (Negative) 09/13/22 22:36 Influenza Type A (PCR) Negative (Neg) 09/13/22 22:36 Influenza Type B (PCR) Negative (Neg) 09/13/22 22:36 RSV (RT-PCR) Negative (Neg) 09/13/22 22:36 SARS-CoV-2, RNA, NAAT NEGATIVE (NEGATIVE) 09/23/22 12:01 Streptococcus sp PCR DETECTED (NotDetected) A 09/13/22 18:57 Strep pneumoniae (PCR) DETECTED (NotDetected) A 09/13/22 18:57 Bld Cult ID Panel PCR See PCR Comment (NotDetected) 09/13/22 18:57 Impressions Chest CTA 09/14/22 07:27 CT ANGIOGRAM OF THE CHEST CLINICAL HISTORY: Cough and dyspnea. COMPARISON STUDY: Chest x-ray dated 09/13/2020 2P TECHNIQUE: Following the IV administration of 120 cc of Optiray 320, CT angiogram of the chest was performed from the upper abdomen to the thoracic inlet utilizing the pulmonary embolus protocol. Images are reviewed in the axial, sagittal, and coronal planes. 3-D MIPS images are created and assessed. IV contrast was administered without complication. A dose lowering technique was utilized adhering to the principles of ALARA. The examination is significantly degraded by motion artifact, as well as by streak artifact from the arms which could not be elevated above the chest. CT DOSE: 484.84 mGy.cm FINDINGS: Thyroid: Mildly enlarged and heterogeneous. Thoracic aorta: There is atherosclerotic calcification of the thoracic aorta, which is normal in caliber and demonstrates standard 3-vessel arch anatomy. No dissection is seen. Pulmonary vasculature: The pulmonary trunk is normal in caliber. There are no filling defects identified in main, lobar, or proximal segmental pulmonary branches to suggest pulmonary embolus. Evaluation of the segmental and subsegmental branches is degraded by motion artifact. Heart: The heart is enlarged and without pericardial effusion. The coronary arteries are densely calcified. Lungs and pleural spaces: There is dense dependent airspace consolidation seen throughout both lungs, left greater than right. Moderate patchy consolidation is seen in the upper lobes. There are trace pleural effusions. The trachea and central airways are patent. Mediastinum: There is no mediastinal lymphadenopathy. Lucia: The lucia are obscured by adjacent consolidation. Axillae: Surgical clips are noted in the left axilla. There is no axillary lymphadenopathy. Upper abdomen: There is a moderate to large hiatal hernia. Partially visualized upper abdominal viscera is otherwise grossly unremarkable. Skeletal structures: The skeletal structures are osteopenic. Advanced degenerative change and hyperkyphosis is noted throughout the thoracic spine. Advanced arthritic change is seen in the shoulders. No lytic or blastic bony lesions are seen. Soft tissues: Postsurgical change is noted in the left breast. IMPRESSION: 1. Streak and motion compromised examination. 2. There is no evidence of central pulmonary embolus in the main, lobar, or proximal segmental pulmonary arteries. Evaluation of the segmental and subsegmental branches is compromised by motion artifact. 3. Extensive bilateral airspace consolidation is typical for pneumonia/aspiration pneumonitis. Clinical correlation will be required and radiographic follow-up to resolution is recommended. 4. Trace pleural effusions. 5. Cardiomegaly. 6. Moderate to large hiatal hernia. 7. Additional findings as above. ACT 112: Negative or not required by law. Electronically signed by: Issac Shipman M.D. 09/14/2022 10:01 AM Chest X-Ray 09/19/22 11:05 SINGLE VIEW CHEST CLINICAL HISTORY: Follow-up pneumonia. FINDINGS: An AP, portable, upright chest radiograph is compared to study dated 09/13/2022 and correlated with chest CT dated 09/14/2022. The heart is enlarged noting atherosclerotic calcification of the thoracic aorta. There is prominence of the tony hepatis which are. Airspace consolidation is seen throughout both lungs, left greater than right with small pleural effusions. No pneumothorax is seen. The skeletal structures are osteopenic. The bony thorax is grossly intact. Arthritic change is seen in the shoulders. Surgical clips are noted in the left chest wall. IMPRESSION: 1. Cardiomegaly with prominence of the pulmonary vasculature. Correlate clinically for evidence of fluid overload/congestive change. 2. Bilateral airspace consolidation, left greater than right. This is similar to previous. 3. Suspect small pleural effusions. ACT 112: Negative or not required by law. Electronically signed by: Issac Shipman M.D. 09/19/2022 11:28 AM Hospital Course (1) Sepsis: (2) Streptococcal bacteremia: (3) Pneumonia: Present on admission with SOB with hypoxia and confusion Recent history of respiratory syncytial virus infection in SNF Met sepsis criteria with leukocytosis, febrile, tachycradia with positive blood pressure CTA chest showed extensive bilateral airspace consolidation is typical for pneumonia/aspiration pneumonitis CXR showed cardiomegaly with pulmonary vascular congestion. Left midlung and left basilar predominant airspace opacities with small left pleural effusion. Blood culture on admission positive for Streptococcus pneumonia Repeat blood culture no growth so far Currently on ceftriaxone for now. will complete 10 days of antibiotics from the day culture was negative (till 09/23/2022). Continue oxygen supplement to maintain saturation over 90%. Continue DuoNebs twice daily. Will give lasix 20mg x1 today Aspiration precautions Plan to transition to Hospice upon discharge to [facility] (4) Hypernatremia: resolved. Encourage oral hydration (5) Hypokalemia: Potassium 4 today Continue monitor BMP Hypomagnesemia Continue monitor Hiatal hernia CTA chest showed moderate to large hiatal hernia. Stable Plan Chronic conditions: History of breast cancer and endometrial cancer, status post surgery. History of hypertension. Losartan with holding parameters. Depression on duloxetine, when able to take po History of hypothyroidism, on Synthroid. History of dementia, Alzheimer's dementia, severe, not able to recognize family members, oriented to name only. Continue to monitor for delirium. Continue Zyprexa home medications. Ambulatory dysfunction. The patient remained only wheelchair bound and needs assistance to get into the wheelchair. Deep venous thrombosis prophylaxis: on heparin subcutaneous. PT OT ordered DVT ppx Disposition Plan to discharge to the facility on hospice Palliative care consult Total Time Total Time Spent Total Time Spent (In Minutes): 35 minutes Discharge Plan Discharge Items Patient Disposition: Hospice - Medical Facility Reason For Visit: SOB Discharge Diagnosis: Sepsis: Streptococcal bacteremia: Pneumonia: Hypernatremia: Hypokalemia: Hypomagnesemia Activity: Resume your previous activity Non-emergency contact: Primary Care Provider Call non-emergency contact if: you have any medication questions Follow-up/Referrals: Yo She[facility] [Primary Care Provider] - Diet: Regular Diet Texture: Dental soft (bite-sized) Addtl Attending Provider Instructions: Discharge to [facility] Hospice care Continue management as per hospice care Hospice team will discontinue non comfort medications Continue oxygen supplement for comfort care Fall precaution Pending Studies at Discharge: No Stand-Alone Forms: [facility] Skilled Items Patient informed of condition?: Yes DNR: Yes Discharge Level of Care: Skilled Communicable Disease: No Discharge Prognosis: Stable Lines: None Urinary Catheter: Yes Medications and DC Order Prescriptions: New lorazepam 0.5 mg Tablet 0.5 mg sublingual Q6H PRN (Reason: anxiety) Qty: 15 0RF Rx Instructions: Comfort care only morphine concentrate 100 mg/5 mL (20 mg/mL) Solution 5 mg PO Q4H PRN (Reason: Dyspnea/pain) Qty: 30 0RF Rx Instructions: comfort care only Continued losartan 50 mg tablet 50 mg PO QAM trazodone 50 mg tablet 50 mg PO HS levothyroxine 100 mcg tablet 100 mcg PO QAM duloxetine 60 mg capsule,delayed release(DR/EC) 60 mg PO QAM melatonin 10 mg Tablet 10 mg PO HS acetaminophen 325 mg Tablet 650 mg PO Q4 MDD 3g PRN (Reason: Pain) acetaminophen 325 mg Tablet 650 mg PO Q4 MDD 3g PRN (Reason: temp=>100) prednisone 10 mg tablet 10 mg PO .DAILY IN AFTERNOON Rx Instructions: take for last 3 days 09/13/22,09/14/22,09/15/22 then d/c albuterol sulfate 2.5 mg /3 mL (0.083 %) solution for nebulization 2.5 mg continuous nebulization Q4 PRN (Reason: Wheezing) ferrous sulfate 325 mg (65 mg iron) Tablet 325 mg PO DAILY omeprazole 20 mg capsule,delayed release(DR/EC) 20 mg PO QAM olanzapine 2.5 mg tablet 2.5 mg PO HS olanzapine 2.5 mg tablet 1.25 mg PO QAM acetaminophen [Tylenol Extra Strength] 500 mg Tablet 500 mg PO Q8 Discharge Orders: Discharge Order (Routine); Ordered 09/23/22 Ordered By: Delta Rush Admission Data Admit Date/Time: 09/13/22 23:48 Attending Provider: Delta Rush Admit Provider: Tariq Arora Primary Care Provider: Yo She[facility] Other Providers: Tariq Arora ; Yo Shepard [facility] ; Naomie Smith ; [facility],Home Healthcare ; [facility],Referral Center Other Interventions: Discharge Summary Assessment (RN) Last Done: 09/23/22 14:47
== END 2022-09-23 16:24 | disposition hospice, inpatient (51) | DRG 871 ==
LOC: ED 17:35 → SUATTDRO 23:48 → EDINP 23:48 → 2E 09-14 00:59